=== PATIENT | female | born 1960 | race Caucasian/White ===

== ENCOUNTER 2021-04-08 14:42 | Emergency (ER) | payer BC, MEDICAID ==
[2021-04-08] MEDS ORDERED: Ondansetron 4 MG Tab.DIS PO ONE (15:31)
[2021-04-08] MEDS ORDERED: Sodium Chloride 0.9% 10 ML Syringe FLUSH PRN (15:39)
[2021-04-08] MEDS ORDERED: Ondansetron 4 MG/2 ML SDV IVPUSH ONE (15:39)
[2021-04-08] MEDS ORDERED: Sodium Chloride 0.9% 1,000 ML IV ONE (15:39)
--- NOTE | 2021-04-08 15:46 | EDM.PDOC ---
ED HPI GENERAL MEDICAL PROBLEM - General Chief Complaint: Gastrointestinal Problem Stated Complaint: VOMITING Time Seen by Provider: 04/08/21 15:28 Source of Information: Reports: Patient, RN Notes Reviewed History Limitations: Reports: No Limitations - History of Present Illness INITIAL COMMENTS - FREE TEXT/NARRATIVE: Patient is a 61-year-old female who presents to the ER for evaluation of her nausea and vomiting. Patient states since yesterday, she has had issues with nausea and vomiting so much that she cannot keep anything down for food or fluids, and she is not been able to take her meds. States that she has had a recent kidney transplant at the beginning of January, and is on antirejection medications. She became concerned again when she took her meds this morning, and could not keep them down called her regular provider in [place], and they told her she should come to the ER for evaluation for possible IV fluids. States she has had no fevers or chills, cough or shortness of breath. No diarrhea as well. She did get her Covid vaccine, and states she got her booster roughly 2 weeks ago. - Related Data Allergies Allergy/AdvReac Type Severity Reaction Status Date / Time codeine Allergy Other Verified 04/08/21 15:29 Home Meds: Home Meds Chromium/Herbal Complex No.238 [Green Tea Caplet] 1 tab PO DAILY 11/04/17 [History] HYDROmorphone [Dilaudid] 4 mg PO Q6HR PRN 11/04/17 [History] LORazepam 1 mg PO TID PRN 11/04/17 [History] Zolpidem Tartrate [Ambien] 10 mg PO BEDTIME PRN 11/04/17 [History] amLODIPine Besylate [Amlodipine Besylate] 10 mg PO DAILY 11/04/17 [History] calcitrioL [Rocaltrol] 0.25 mcg PO ASDIRECTED 11/04/17 [History] carvediloL [Coreg] 6.25 mg PO BID 11/04/17 [History] Ondansetron [Zofran ODT] 4 mg PO Q8H PRN #15 tab.dis 04/08/21 [Rx] Past Medical History Immunologic History: Reports: Solid Organ Transplant (Kidney transplant 01/2021) - History Comment History Comment: Has had COVID vaccine w/ booster end of Feb 2021 ED ROS GENERAL - Review of Systems Review Of Systems: Comprehensive ROS is negative, except as noted in HPI. ED EXAM, GI/ABD - Physical Exam Exam: See Below Exam Limited By: No Limitations General Appearance: Alert, WD/WN, No Apparent Distress Respiratory/Chest: No Respiratory Distress, Lungs Clear, Normal Breath Sounds, No Accessory Muscle Use, Chest Non-Tender Cardiovascular: Normal Peripheral Pulses, Regular Rate, Rhythm GI/Abdominal Exam: Normal Bowel Sounds, Soft, Non-Tender, No Distention, No Mass Extremities: Normal Inspection, Normal Capillary Refill Neurological: Alert, Oriented, Normal Cognition, No Motor/Sensory Deficits Psychiatric: Normal Affect, Normal Mood Skin Exam: Warm, Dry, Intact, Normal Color, No Rash Course - Vital Signs Last Recorded V/S: Last Vital Signs Temp 96.9 F 04/08/21 15:25 Pulse 75 04/08/21 15:25 Resp 18 04/08/21 15:25 BP 146/95 H 04/08/21 15:25 Pulse Ox 98 04/08/21 15:25 - Orders/Labs/Meds Orders: Active Orders 24 hr Category Date Time Status Peripheral IV Care [RC] . DIRECTED Care 04/08/21 15:39 Ordered Sodium Chloride 0.9% [Normal Saline] 1,000 ml Med 04/08/21 15:39 Ordered IV ONETIME Sodium Chloride 0.9% [Saline Flush] Med 04/08/21 15:39 Ordered 10 ml FLUSH ASDIRECTED PRN Peripheral IV Insertion Adult [OM.PC] Routine Oth 04/08/21 15:39 Ordered Medication Orders Sodium Chloride (Normal Saline) 1,000 mls @ 150 mls/hr IV ONETIME ONE Stop: 04/08/21 22:18 Last Admin: 04/08/21 15:51 Dose: 150 mls/hr Documented by: RADHA Sodium Chloride (Sodium Chloride 0.9% 10 Ml Syringe) 10 ml FLUSH ASDIRECTED PRN PRN Reason: Keep Vein Open Last Admin: 04/08/21 15:51 Dose: 10 ml Documented by: RADHA Labs: Laboratory Tests 04/08/21 04/08/21 04/08/21 Range/Units 15:30 15:30 15:41 WBC 8.08 (3.98-10.04) K/mm3 RBC 4.34 (3.98-5.22) M/mm3 Hgb 12.7 (11.2-15.7) gm/dl Hct 40.4 (34.1-44.9) % MCV 93.1 (79.4-94.8) fl MCH 29.3 (25.6-32.2) pg MCHC 31.4 L (32.2-35.5) g/dl RDW Std Deviation 53.3 H (36.4-46.3) fL Plt Count 334 (182-369) K/mm3 MPV 10.5 (9.4-12.3) fl Neut % (Auto) 86.8 H (34.0-71.1) % Lymph % (Auto) 4.8 L (19.3-51.7) % Jack % (Auto) 7.5 (4.7-12.5) % Eos % (Auto) 0.2 L (0.7-5.8) Baso % (Auto) 0.2 (0.1-1.2) % Neut # (Auto) 7.00 H (1.56-6.13) K/mm3 Lymph # (Auto) 0.39 L (1.18-3.74) K/mm3 Jack # (Auto) 0.61 H (0.24-0.36) K/mm3 Eos # (Auto) 0.02 L (0.04-0.36) K/mm3 Baso # (Auto) 0.02 (0.01-0.08) K/mm3 Sodium 141 (136-145) mEq/L Potassium 3.7 (3.5-5.1) mEq/L Chloride 104 (98-107) mEq/L Carbon Dioxide 26 (21-32) mEq/L Anion Gap 14.7 (5-15) BUN 24 H (7-18) mg/dL Creatinine 1.3 H (0.55-1.02) mg/dL Est Cr Clr Drug Dosing 39.05 mL/min Estimated GFR (MDRD) 41 (>60) mL/min BUN/Creatinine Ratio 18.5 H (14-18) Glucose 126 H (70-99) mg/dL Calcium 9.2 (8.5-10.1) mg/dL Total Bilirubin 0.5 (0.2-1.0) mg/dL AST 19 (15-37) U/L ALT 30 (14-59) U/L Alkaline Phosphatase 79 (46-116) U/L Total Protein 7.1 (6.4-8.2) g/dl Albumin 4.0 (3.4-5.0) g/dl Globulin 3.1 gm/dL Albumin/Globulin Ratio 1.3 (1-2) SARS-CoV-2 RNA (KYLE) Negative (NEGATIVE) Meds: Medications Generic Name Dose Route Start Last Admin Trade Name Freq PRN Reason Stop Dose Admin Sodium Chloride 1,000 mls @ 150 mls/hr 04/08/21 15:39 04/08/21 15:51 Normal Saline IV 04/08/21 22:18 150 mls/hr ONETIME ONE Administration Sodium Chloride 10 ml 04/08/21 15:39 04/08/21 15:51 Sodium Chloride 0.9% 10 Ml Syringe FLUSH 10 ml ASDIRECTED PRN Administration Keep Vein Open Discontinued Medications Generic Name Dose Route Start Last Admin Trade Name Freq PRN Reason Stop Dose Admin Ondansetron HCl 4 mg 04/08/21 15:31 04/08/21 15:45 Ondansetron 4 Mg Tab.Dis PO 04/08/21 15:32 Not Given ONETIME ONE Ondansetron HCl 4 mg 04/08/21 15:39 04/08/21 15:51 Ondansetron 4 Mg/2 Ml Sdv IVPUSH 04/08/21 15:40 4 mg ONETIME ONE Administration - Re-Assessments/Exams Free Text/Narrative Re-Assessment/Exam: 04/08/21 15:47 Patient presents to the ER for evaluation of her nausea and vomiting. We will go ahead and give her some IV fluids at 150 mils per hour. Get some basic labs, and check a Covid swab for today's purposes. This very well could be more of a viral gastroenteritis causing issues. If this is the case we can get her going home with some Zofran so she can leave keep her medications down, and have her follow-up with her transplant team tomorrow if symptoms seem to worsen. 04/08/21 17:06 Patient's COVID-19 screen was negative. Laboratory evaluation did demonstrate some slight dehydration, we will go ahead and treat her more for a viral gastroenteritis, and have her follow-up with her transplant team tomorrow. Departure - Departure Time of Disposition: 17:38 Disposition: Home, Self-Care 01 Condition: Good Clinical Impression: Viral gastroenteritis - Discharge Information *PRESCRIPTION DRUG MONITORING PROGRAM REVIEWED*: No *COPY OF PRESCRIPTION DRUG MONITORING REPORT IN PATIENT BRAYAN: No Prescriptions: Ondansetron [Zofran ODT] 4 mg PO Q8H PRN #15 tab.dis PRN Reason: Nausea Instructions: Viral Gastroenteritis, Adult, [id number] Referrals: Nu Ma [employer] DR[employer] [Primary Care Provider] - Forms: ED Department Discharge Additional Instructions: You have been evaluated in the ED for nausea/vomiting/diarrhea. It is likely that this is caused from a viral gastroenteritis. You have received IV fluid in the ED to help with the dehydration from the vomiting and diarrhea. Over the next 24-48 hours please try to limit diet to clear liquids and advance as tolerated to a bland diet to alleviate symptoms of nausea/vomiting/diarrhea. Please use the Zofran every 8 hours as needed for nausea. This medication was electronically sent to the [facility] located near [facility]. Please return to the ED if your symptoms should change or worsen. Sepsis Event Note (ED) - Focused Exam Vital Signs: Vital Signs Temp Pulse Resp BP Pulse Ox 04/08/21 15:25 96.9 F 75 18 146/95 H 98 - My Orders Last 24 Hours: My Active Orders 04/08/21 15:39 Peripheral IV Care [RC] . DIRECTED Sodium Chloride 0.9% [Normal Saline] 1,000 ml IV ONETIME Sodium Chloride 0.9% [Saline Flush] 10 ml FLUSH ASDIRECTED PRN Peripheral IV Insertion Adult [OM.PC] Routine - Assessment/Plan Last 24 Hours: My Active Orders 04/08/21 15:39 Peripheral IV Care [RC] . DIRECTED Sodium Chloride 0.9% [Normal Saline] 1,000 ml IV ONETIME Sodium Chloride 0.9% [Saline Flush] 10 ml FLUSH ASDIRECTED PRN Peripheral IV Insertion Adult [OM.PC] Routine
== END 2021-04-08 17:45 | disposition home or self-care (01) ==
LOC: JD.ED 14:42
DX: A08.4 Viral intestinal infection, unspecified (principal); Z88.5 Allergy status to narcotic agent; Z20.822 Contact with and (suspected) exposure to COVID-19
CPT/HCPCS: 36415; 80053; 85025; 87635; 96361; 96374; 99284; J2405; J7030; 99283; U0002

== ENCOUNTER 2021-04-24 17:43 | Observation (INO) | payer BC, MEDICAID ==
[2021-04-24] MEDS ORDERED: HYDROmorphone 0.5 MG/0.5 ML Syringe IVPUSH ONE ×2 (19:17→21:03)
[2021-04-24] MEDS ORDERED: Ondansetron 4 MG/2 ML SDV IVPUSH ONE (19:17)
--- NOTE | 2021-04-24 19:25 | EDM.PDOC ---
<García Lopez - Last Filed: 04/25/21 00:40> ED HPI GENERAL MEDICAL PROBLEM - General Chief Complaint: Abdominal Pain Stated Complaint: ABD PAIN/BLOOD IN URINE/POST KIDNEY TRANSPLANT Time Seen by Provider: 04/24/21 18:17 Source of Information: Reports: Patient, Family (Daughter) History Limitations: Reports: No Limitations - History of Present Illness INITIAL COMMENTS - FREE TEXT/NARRATIVE: Ms. Angela is a very pleasant 61-year-old woman with a past medical history significant for a kidney transplant this past January, who now presents to the ED stating that she has had watery diarrhea for the past 2 days, that became bloody diarrhea today. She states that she developed sudden-onset generalized abdominal pain yesterday, 04/23/2021, after lifting a pile of leaves. She describes the pain as sharp in character, and states that it comes and goes, typically lasting about 30 to 60 seconds, then recurring every minute. The pain does not radiate. She has not identified any modifiers. She has had associated nausea, but no vomiting. No recent fever. No recent dysuria, urinary urgency, or frequency, however, she states that it is possible that she has gross hematuria, not being able to distinguish whether or not she is seeing bloody diarrhea or gross hematuria. No prior similar symptoms. The patient states that she took some Tylenol, which did not help her symptoms. The patient last ate around 10:00 this morning. Here in the ED, the patient is found to be hemodynamically stable, afebrile, saturating 95% on room air. She appears to be comfortable, in no acute distress. Prior to 2 days ago, the patient denies having a recent fever, chills, sore throat, ear pain, nasal or sinus congestion, cough, dyspnea, chest pain, p alpitations, nausea, vomiting, constipation, diarrhea, abdominal pain, urinary symptoms, recent weight gain or weight loss, recent bloody bowel movements or black bowel movements, recent joint aches, headaches, or rashes. The patient's PCP is Nu Ma NP. Her Fur Joiner is Dr. Titi Callahan, at [facility]. She has received 2 COVID vaccinations plus a booster. Right Abdomen Pain Score (Numeric/FACES): 8 - Related Data Allergies Allergy/AdvReac Type Severity Reaction Status Date / Time codeine Allergy Severe Other Verified 04/24/21 18:19 Home Meds: Home Meds LORazepam 1 mg PO TID PRN 11/04/17 [History] Zolpidem Tartrate [Ambien] 10 mg PO BEDTIME PRN 11/04/17 [History] amLODIPine Besylate [Amlodipine Besylate] 10 mg PO DAILY 11/04/17 [History] calcitrioL [Rocaltrol] 0.25 mcg PO ASDIRECTED 11/04/17 [History] carvediloL [Coreg] 6.25 mg PO BID 11/04/17 [History] Ondansetron [Zofran ODT] 4 mg PO Q8H PRN #15 tab.dis 04/08/21 [Rx] Entecavir 0.5 mg PO Q2D 04/24/21 [History] Tacrolimus 2.5 mg PO BID 04/24/21 [History] Valganciclovir HCl 450 mg PO DAILY 04/24/21 [History] predniSONE [Prednisone] 5 mg PO DAILY 04/24/21 [History] Past Medical History HEENT History: Reports: Impaired Vision Cardiovascular History: Reports: High Cholesterol (untreated), Hypertension Gastrointestinal History: Reports: PUD Genitourinary History: Reports: Other (See Below) (ESRD, s/p kidney transplant Jan 2021) Psychiatric History: Reports: Anxiety, Depression Endocrine/Metabolic History: Reports: Hypothyroidism Immunologic History: Reports: Immunosuppression, Solid Organ Transplant - Past Surgical History HEENT Surgical History: Reports: Oral Surgery (dental extractions) GI Surgical History: Reports: Colonoscopy (x 1), EGD (x 1) Female Surgical History: Reports: Other (See Below) (Kidney transplant to RLQ Jan 2021) - History Comment History Comment: Has had COVID vaccine w/ booster end of Feb 2021 Social & Family History - Tobacco Use Tobacco Use Status *Q: Former Tobacco User Years of Tobacco use: 46 Packs/Tins Daily: 2 Month/Year Tobacco Last Used: Quit 01/31/21 Tobacco Use Comment: Started smoking 1974 - Caffeine Use Caffeine Use: Reports: Coffee - Alcohol Use Alcohol Use History: Yes Alcohol Use Frequency: Rarely - Recreational Drug Use Recreational Drug Use: Yes Drug Use in Last 12 Months: Yes Recreational Drug Type: Reports: Marijuana/Hashish (last smoked Jan 2021) - Living Situation & Occupation Living situation: Reports: Single, Alone Occupation: Unemployed ED ROS GENERAL - Review of Systems Review Of Systems: Comprehensive ROS is negative, except as noted in HPI. ED EXAM, GI/ABD - Physical Exam Exam: See Below Exam Limited By: No Limitations General Appearance: Alert, WD/WN, No Apparent Distress Eyes: Bilateral: Normal Appearance, EOMI Ears: Normal External Exam, Hearing Grossly Normal Nose: Normal Inspection Throat/Mouth: Normal Inspection, Normal Lips, Normal Voice, No Airway Compromise Head: Atraumatic, Normocephalic Neck: Normal Inspection, Full Range of Motion Respiratory/Chest: No Respiratory Distress, Lungs Clear, Normal Breath Sounds, No Accessory Muscle Use Cardiovascular: Normal Peripheral Pulses, Regular Rate, Rhythm, No Edema, No Gallop, No JVD, No Murmur, No Rub GI/Abdominal Exam: Soft, No Organomegaly, No Distention, No Abnormal Bruit, No Mass, Tender (generalized, non-focal), Abnormal Bowel Sounds (diminished, although not absent), Mass (RLQ = transplanted kidney), Other (Well-healed diagonal scar to the right lower quadrant at site of kidney transplant) Back Exam: Normal Inspection, Full Range of Motion. No: CVA Tenderness (L), CVA Tenderness (R) Extremities: Normal Inspection, Normal Range of Motion, No Pedal Edema, Normal Capillary Refill Neurological: Alert, Oriented, Normal Cognition, No Motor/Sensory Deficits Psychiatric: Normal Affect Skin Exam: Warm, Dry, Intact, Normal Color, No Rash Course - Re-Assessments/Exams Free Text/Narrative Re-Assessment/Exam: 04/24/21 19:18 On examination, the patient has diminished bowel sounds with generalized abdominal tenderness. I have ordered a work-up that includes several blood tests and a urinalysis by clean-catch. I would like to get a CT of her abdomen and pelvis with oral and IV contrast, however, since she is a kidney transplant patient, I would like to discuss this with her Fur Joiner first. We are endeavoring to contact Dr. Callahan. In the meantime, the patient will be given some IV Dilaudid, IV Zofran, and IV fluid. 04/24/21 19:[address] Powell at 19:21. He recommended that we avoid iodinated contrast if her creatinine is above 1.5. 04/24/21 21:00 The patient's CBC is remarkable for slight leukocytosis of 10.16, but with 0% bandemia, and thrombocytosis of 377,000, with the remainder of her CBC being unremarkable. Her CMP is remarkable for a Cr slightly elevated at 1.3 with a BUN normal at 18, and hyperglycemia of 134, with the remainder of her CMP being unremarkable. Her magnesium level is slightly depressed at 1.7. Her lipase level is within normal limits at 108. Her urinalysis is remarkable for slightly cloudy appearance, occult blood negative with 0-5 RBCs, 1+ leukocyte esterase with 5-10 WBCs, nitrate negative with few bacteria, and 10-20 squamous epithelial cells. Based on the above, I have ordered a CT of the abdomen and pelvis with oral and IV contrast. 04/24/21 21:03 Test results thus far and my plan to perform a CT scan discussed with the patient and her daughter. The patient is agreeable. She requested some additional pain medication. 04/24/21 23:53 CT of the abdomen and pelvis with oral and IV contrast is read by vRrohith as: 1. Transplant kidney right iliac fossa. 2. Given change in caliber of small bowel in the mid and lower right abdomen raises concern for partial moderate grade small bowel obstruction potentially related to adhesions. Small bowel is dilated to a diameter of 3.7 cm associated with aerated secretions which may be seen in obstruction and prolonged transit of small bowel content. 3. Mesenteric fluid in the right abdomen and in the pelvis. 4. Prominence of the common bile duct and the pancreatic duct. No intraductal calculus or pancreatic head mass is identified. Consider initial further assessment with MRCP/ERCP as clinically indicated. 04/25/21 00:13 The patient will need to be admitted. We do not have any beds available at this facility at this time. Shirley HODGE checked with the floor, and found that it is unlikely that a bed will become available tomorrow. 04/25/21 00:19 Test results discussed with the patient and her daughter. Notified that [facility] does not have a bed available. Our outpatient interviewing clerk is still checking with S[facility] Fioremarck. 04/25/21 00:33 Notified that [facility] does not have a bed available. Since the patient is not critically ill, I do not believe it would be prudent to fly her to a further facility. The plan will be to board the patient here in the ED until a bed becomes either here or in [place]. The above was relayed to the patient (her daughter has gone home). Departure - Departure Disposition: Refer to Observation Clinical Impression: Small bowel obstruction - Discharge Information *PRESCRIPTION DRUG MONITORING PROGRAM REVIEWED*: Not Applicable *COPY OF PRESCRIPTION DRUG MONITORING REPORT IN PATIENT BRAYAN: Not Applicable Referrals: Nu Ma NP [Primary Care Provider] - Titi Oakes MD [Ordering Only Provider] - Forms: ED Department Discharge Sepsis Event Note (ED) - Evaluation Sepsis Screening Result: No Definite Risk <Anthony Dyer - Last Filed: 04/25/21 10:07> Course - Vital Signs Last Recorded V/S: Last Vital Signs Temp 97.7 F 04/24/21 18:17 Pulse 80 04/24/21 18:17 Resp 18 04/24/21 18:17 BP 135/77 04/24/21 18:17 Pulse Ox 95 04/24/21 18:17 - Orders/Labs/Meds Orders: Active Orders 24 hr Category Date Time Status Sodium Chloride 0.9% [Normal Saline] 1,000 ml Med 04/24/21 19:30 Active IV ASDIRECTED Sodium Chloride 0.9% [Normal Saline] 1,000 ml Med 04/25/21 07:30 Active IV ASDIRECTED Medication Orders Sodium Chloride (Normal Saline) 1,000 mls @ 150 mls/hr IV ASDIRECTED RYAN Last Admin: 04/24/21 20:05 Dose: 150 mls/hr Documented by: JOVANNA Sodium Chloride (Normal Saline) 1,000 mls @ 100 mls/hr IV ASDIRECTED RYAN Last Admin: 04/25/21 03:00 Dose: 100 mls/hr Documented by: ANGY Labs: Laboratory Tests 04/24/21 04/24/21 04/24/21 Range/Units 19:05 20:09 20:09 WBC 10.16 H (3.98-10.04) K/mm3 RBC 4.26 (3.98-5.22) M/mm3 Hgb 12.3 (11.2-15.7) gm/dl Hct 39.1 (34.1-44.9) % MCV 91.8 (79.4-94.8) fl MCH 28.9 (25.6-32.2) pg MCHC 31.5 L (32.2-35.5) g/dl RDW Std Deviation 47.3 H (36.4-46.3) fL Plt Count 377 H (182-369) K/mm3 MPV 10.1 (9.4-12.3) fl Neutrophils % (Manual) 85 H (40-60) % Band Neutrophils % 0 (0-10) % Lymphocytes % (Manual) 8 L (20-40) % Atypical Lymphs % 0 % Monocytes % (Manual) 6 (2-10) % Eosinophils % (Manual) 1 (0.7-5.8) % Basophils % (Manual) 0 L (0.1-1.2) Platelet Estimate Adequate RBC Morph Comment Normal Sodium 137 (136-145) mEq/L Potassium 4.1 (3.5-5.1) mEq/L Chloride 101 (98-107) mEq/L Carbon Dioxide 23 (21-32) mEq/L Anion Gap 17.1 H (5-15) BUN 18 (7-18) mg/dL Creatinine 1.3 H (0.55-1.02) mg/dL Est Cr Clr Drug Dosing 38.25 mL/min Estimated GFR (MDRD) 41 (>60) mL/min BUN/Creatinine Ratio 13.8 L (14-18) Glucose 134 H (70-99) mg/dL Calcium 9.1 (8.5-10.1) mg/dL Magnesium 1.7 L (1.8-2.4) mg/dL Total Bilirubin 0.4 (0.2-1.0) mg/dL AST 14 L (15-37) U/L ALT 27 (14-59) U/L Alkaline Phosphatase 78 (46-116) U/L Total Protein 7.0 (6.4-8.2) g/dl Albumin 3.5 (3.4-5.0) g/dl Globulin 3.5 gm/dL Albumin/Globulin Ratio 1.0 (1-2) Lipase 108 (73-393) U/L Urine Color Yellow (Yellow) Urine Appearance Slt cloudy H (Clear) Urine pH 5.5 (5.0-8.0) Ur Specific Emmet > or = 1.030 (1.005-1.030) Urine Protein Negative (Negative) Urine Glucose (UA) Negative (Negative) Urine Ketones Negative (Negative) Urine Occult Blood Negative (Negative) Urine Nitrite Negative (Negative) Urine Bilirubin Negative (Negative) Urine Urobilinogen 0.2 (0.2-1.0) Ur Leukocyte Esterase 1+ H (Negative) Urine RBC 0-5 (0-5) /hpf Urine WBC 5-10 H (0-5) /hpf Ur Squamous Epith Cells 10-20 H (0-5) /hpf Amorphous Sediment Moderate H (NOT SEEN) /hpf Urine Bacteria Few (FEW) /hpf Urine Mucus Few (FEW) /hpf SARS-CoV-2 RNA (KYLE) (NEGATIVE) 04/25/21 Range/Units 00:20 WBC (3.98-10.04) K/mm3 RBC (3.98-5.22) M/mm3 Hgb (11.2-15.7) gm/dl Hct (34.1-44.9) % MCV (79.4-94.8) fl MCH (25.6-32.2) pg MCHC (32.2-35.5) g/dl RDW Std Deviation (36.4-46.3) fL Plt Count (182-369) K/mm3 MPV (9.4-12.3) fl Neutrophils % (Manual) (40-60) % Band Neutrophils % (0-10) % Lymphocytes % (Manual) (20-40) % Atypical Lymphs % % Monocytes % (Manual) (2-10) % Eosinophils % (Manual) (0.7-5.8) % Basophils % (Manual) (0.1-1.2) Platelet Estimate RBC Morph Comment Sodium (136-145) mEq/L Potassium (3.5-5.1) mEq/L Chloride (98-107) mEq/L Carbon Dioxide (21-32) mEq/L Anion Gap (5-15) BUN (7-18) mg/dL Creatinine (0.55-1.02) mg/dL Est Cr Clr Drug Dosing mL/min Estimated GFR (MDRD) (>60) mL/min BUN/Creatinine Ratio (14-18) Glucose (70-99) mg/dL Calcium (8.5-10.1) mg/dL Magnesium (1.8-2.4) mg/dL Total Bilirubin (0.2-1.0) mg/dL AST (15-37) U/L ALT (14-59) U/L Alkaline Phosphatase (46-116) U/L Total Protein (6.4-8.2) g/dl Albumin (3.4-5.0) g/dl Globulin gm/dL Albumin/Globulin Ratio (1-2) Lipase (73-393) U/L Urine Color (Yellow) Urine Appearance (Clear) Urine pH (5.0-8.0) Ur Specific Emmet (1.005-1.030) Urine Protein (Negative) Urine Glucose (UA) (Negative) Urine Ketones (Negative) Urine Occult Blood (Negative) Urine Nitrite (Negative) Urine Bilirubin (Negative) Urine Urobilinogen (0.2-1.0) Ur Leukocyte Esterase (Negative) Urine RBC (0-5) /hpf Urine WBC (0-5) /hpf Ur Squamous Epith Cells (0-5) /hpf Amorphous Sediment (NOT SEEN) /hpf Urine Bacteria (FEW) /hpf Urine Mucus (FEW) /hpf SARS-CoV-2 RNA (KYLE) Negative (NEGATIVE) Meds: Medications Generic Name Dose Route Start Last Admin Trade Name Freq PRN Reason Stop Dose Admin Sodium Chloride 1,000 mls @ 150 mls/hr 04/24/21 19:30 04/24/21 20:05 Normal Saline IV 150 mls/hr ASDIRECTED RYAN Administration Sodium Chloride 1,000 mls @ 100 mls/hr 04/25/21 07:30 04/25/21 03:00 Normal Saline IV 100 mls/hr ASDIRECTED RYAN Administration Discontinued Medications Generic Name Dose Route Start Last Admin Trade Name Freq PRN Reason Stop Dose Admin Hydromorphone HCl 0.5 mg 04/24/21 19:17 04/24/21 20:06 Hydromorphone 0.5 Mg/0.5 Ml Syringe IVPUSH 04/24/21 19:18 0.5 mg ONETIME ONE Administration Hydromorphone HCl 0.5 mg 04/24/21 21:03 04/24/21 21:09 Hydromorphone 0.5 Mg/0.5 Ml Syringe IVPUSH 04/24/21 21:04 0.5 mg ONETIME ONE Administration Hydromorphone HCl 0.5 mg 04/25/21 00:40 04/25/21 00:54 Hydromorphone 0.5 Mg/0.5 Ml Syringe IVPUSH 04/25/21 00:41 0.5 mg ONETIME ONE Administration Ondansetron HCl 4 mg 04/24/21 19:17 04/24/21 20:06 Ondansetron 4 Mg/2 Ml Sdv IVPUSH 04/24/21 19:18 4 mg ONETIME ONE Administration - Re-Assessments/Exams Free Text/Narrative Re-Assessment/Exam: 04/25/21 10:06 A bed opened up and I talked with Dr Haas and he agreed to the admission. Departure - Departure Time of Disposition: 10:10 Condition: Fair
[2021-04-24] MEDS ORDERED: Sodium Chloride 0.9% 1,000 ML IV SCH (19:30)
[2021-04-25] MEDS ORDERED: HYDROmorphone 0.5 MG/0.5 ML Syringe IVPUSH ONE (00:40)
[2021-04-25] MEDS ORDERED: Sodium Chloride 0.9% 1,000 ML IV SCH (07:30)
--- NOTE | 2021-04-25 07:37 | CT ---
CT abdomen and pelvis Technique: Multiple axial sections were obtained from above the dome of the diaphragm inferiorly through the pubic symphysis. Intravenous and oral contrast were utilized. Delayed images were also obtained through the abdomen and pelvis. Reconstructed coronal and sagittal images were obtained. Comparison: No prior CT abdomen or pelvis study are available. Findings: Visualized lung bases show nothing acute. Liver contains no focal abnormality. Gallbladder contains no calcified gallstones. Distal CBD measures normal in size. No focal abnormality is seen within the pancreas. Spleen size is normal. Calcification is noted within the spleen. Adrenal glands show no nodule. Both kidneys are atrophied. Transplant kidney is seen within the right pelvis which shows normal contrast enhancement. Abdominal aorta shows atherosclerotic calcification which continues into the iliac vessels. No aneurysm is seen. No retroperitoneal adenopathy or mesenteric abnormalities are seen. No pelvic mass or adenopathy is seen. Appendix is not visualized. Diverticuli are seen within the sigmoid colon without evidence of diverticulitis. Dilated small bowel loops are seen within the lower abdomen and pelvis with nondilated loops seen distally. Maximum transverse dimension is 3.7 cm. Findings are most likely due to a focal area of small bowel obstruction probably due to nonvisualized adhesions. Minimal free fluid is seen within the dependent pelvis. Delayed images show contrast excretion from the transplant kidney into the ureter and into the bladder. Delayed images show mild degenerative change scattered within the spine. No acute osseous abnormality is appreciated. Impression: 1. Dilated small bowel loops within the lower abomen with distal bowel loops appearing normal in size. Findings most likely represent focal small bowel obstruction. Etiology is most likely due to nonvisualized adhesions. 2. Small amount of fluid within the dependent pelvis. 3. Prior cholecystectomy. Biliary ducts are felt to be within normal limits for a postcholecystectomy patient. Diagnostic code #3 I agree with preliminary report from [facility], finalized on 04/25/21, 12:47 AM CDT, code 1
--- NOTE | 2021-04-25 10:11 | PCM.HP.2 ---
H&P History of Present Illness - General Date of Service: 04/25/21 Source of Information: Patient, Family (Daughter ), Old Records, Provider, RN, RN Notes Reviewed History Limitations: Reports: No Limitations - History of Present Illness Initial Comments - Free Text/Narative: This is a 61-year-old female who presents to ED on 04/24/2021 with abdominal pain and bloody diarrhea. She is chronically immunocompromised status post kidney transplant this past January. She states she developed sudden onset generalized abdominal pain on 04/23/2021 after lifting a pile of leaves which she reports is sharp. She states it comes and goes and lasts 30 to 60 seconds recurring about every minute. She reports she has had watery diarrhea for the past 2 days but she then noticed blood in her stool and decided to come to the emergency room. She reports nausea but no vomiting. Denies any recent fever or urinary symptoms. She took some Tylenol which did not help. She has received her 2 Covid vaccinations and a booster. In the ED she is noted to be hemodynamically stable afebrile and satting 95% on room air. Heart rate was 80 respirations were 18. Blood pressure 135/77. She was noted to have diminished bowel signs and generalized abdominal tenderness. After discussion with Dr. Powell, insole rasper, it is felt safe to proceed with a CT of the abdomen and pelvis with oral and IV contrast. This is interpreted by Dr. Burger, radiologist as "1. Dilated small bowel loops within the lower abdomen with distal bowel loops appearing normal in size. Findings most likely represent focal small bowel obstruction. Etiology is most likely due to nonvisualized adhesions. 2. Small amount of fluid within the dependent pelvis. 3. Prior cholecystectomy. Biliary ducts are felt to be within normal limits for a postcholecystectomy patient. Labs are obtained showing a mild leukocytosis of 10.16. Hemoglobin is 12.3. Platelet 377,000. Neutrophils are elevated at 85%. There is no bandemia. Sodium is 137. Potassium 4.1. Chlo ride 101. Carbon dioxide 23. Anion gap is 17.1. BUN is 18. Creatinine 1.3. GFR 41. Glucose is 134. Calcium 9.1. Magnesium is 1.7. Bilirubin 0.4. AST is 14, ALT 27, alkaline phosphatase 78. Protein is 7.0. Albumin 3.5. Lipase is 108. UA is obtained and is negative however cloudy concentrated urine is noted with 1+ leukocyte esterase, 5-10 WBCs, 10-20 squamous epithelial cells, and moderate amorphous sediment. Covid 2 RNA screen is negative. Patient is given Dilaudid for pain and started on normal saline. Unfortunately our facility in both facilities in [place] are on diversion and it is not felt patient is ill enough to be transferred further. She is held in our emergency d epartment until a bed opens up today on medical surgical floor. She is subsequently admitted to the medical floor observation status for management of her partial small bowel obstruction. She is a full code. Her primary care provider is Nu Ma NP. Her insole rasper is Dr. Titi Gibbs in [place]. She carries a history of HLD, HTN, PUD, status post renal transplant in January 2021, anxiety, depression, hypothyroidism, immunosuppression. She is a former smoker. Right Abdomen Pain Score (Numeric/FACES): 8 - Related Data Allergies/Adverse Reactions: Allergies Allergy/AdvReac Type Severity Reaction Status Date / Time codeine Allergy Unknown Other Verified 04/25/21 12:31 Home Medications: Home Meds LORazepam 1 mg PO TID PRN 11/04/17 [History] Zolpidem Tartrate [Ambien] 10 mg PO BEDTIME PRN 11/04/17 [History] amLODIPine Besylate [Amlodipine Besylate] 10 mg PO DAILY 11/04/17 [History] carvediloL [Coreg] 12.5 mg PO BID 11/04/17 [History] Ondansetron [Zofran ODT] 4 mg PO Q8H PRN #15 tab.dis 04/08/21 [Rx] Entecavir 0.5 mg PO Q2D 04/24/21 [History] Tacrolimus 2.5 mg PO BID 04/24/21 [History] Valganciclovir HCl 450 mg PO DAILY 04/24/21 [History] predniSONE [Prednisone] 5 mg PO DAILY 04/24/21 [History] Levothyroxine [Synthroid] 50 mcg PO ACBREAKFAST 04/25/21 [History] Magnesium Oxide [Magnesium] 400 mg PO BID 04/25/21 [History] Pantoprazole Sodium [Protonix] 40 mg PO ACBREAKFAST 04/25/21 [History] Rosuvastatin [Crestor] 10 mg PO BEDTIME 04/25/21 [History] Sertraline [Zoloft] 50 mg PO DAILY 04/25/21 [History] Sulfamethoxazole/Trimethoprim [Bactrim 400-80 MG] 1 tab PO DAILY 04/25/21 [History] mycophenolate mofetiL [Cellcept] 1,000 mg PO BID 04/25/21 [History] Past Medical History HEENT History: Reports: Impaired Vision Cardiovascular History: Reports: High Cholesterol (untreated), Hypertension Gastrointestinal History: Reports: PUD Genitourinary History: Reports: Other (See Below) (ESRD, s/p kidney transplant Jan 2021) Psychiatric History: Reports: Anxiety, Depression Endocrine/Metabolic History: Reports: Hypothyroidism Immunologic History: Reports: Immunosuppression, Solid Organ Transplant - Past Surgical History HEENT Surgical History: Reports: Oral Surgery (dental extractions) GI Surgical History: Reports: Colonoscopy (x 1), EGD (x 1) Female Surgical History: Reports: Other (See Below) (Kidney transplant to RLQ Jan 2021) - History Comment History Comment: Has had COVID vaccine w/ booster end of Feb 2021 Social & Family History - Tobacco Use Tobacco Use Status *Q: Former Tobacco User Years of Tobacco use: 46 Packs/Tins Daily: 2 Used Tobacco, but Quit: Yes Month/Year Tobacco Last Used: Quit 01/31/21 Tobacco Use Comment: Started smoking 1974 - Caffeine Use Caffeine Use: Reports: Coffee - Recreational Drug Use Recreational Drug Use: Yes Drug Use in Last 12 Months: Yes Recreational Drug Type: Reports: Marijuana/Hashish (last smoked Jan 2021) - Living Situation & Occupation Living situation: Reports: Single, Alone Occupation: Unemployed H&P Review of Systems - Review of Systems: Review Of Systems: See Below General: Reports: No Symptoms. Denies: Fever, Chills, Malaise, Weakness, Fatigue HEENT: Reports: No Symptoms. Denies: Headaches, Sore Throat Pulmonary: Reports: No Symptoms. Denies: Shortness of Breath, Wheezing, Pleuritic Chest Pain, Cough, Sputum Cardiovascular: Reports: No Symptoms. Denies: Chest Pain, Palpitations, Dyspnea on Exertion, Edema Gastrointestinal: Reports: Abdominal Pain (Generalized - Upper quadrants most severe ), Diarrhea, Flatus, Hematochezia, Nausea. Denies: Constipation, Hematemesis, Melena, Vomiting Genitourinary: Reports: No Symptoms. Denies: Pain Musculoskeletal: Reports: No Symptoms Skin: Reports: No Symptoms. Denies: Cyanosis Psychiatric: Reports: No Symptoms. Denies: Confusion Neurological: Reports: No Symptoms. Denies: Dizziness, Headache, Numbness, Pre- Existing Deficit, Seizure, Syncope, Tingling, Difficulty Walking, Gait Disturbance Hematologic/Lymphatic: Reports: No Symptoms Immunologic: Reports: No Symptoms Exam - Exam Exam: See Below (tamiko campbell) - Vital Signs Vital Signs: Last Vital Signs Temp 97.7 F 04/24/21 18:17 Pulse 80 04/24/21 18:17 Resp 18 04/24/21 18:17 BP 135/77 04/24/21 18:17 Pulse Ox 95 04/24/21 18:17 Weight: 152 lb 4.8 oz - Exam Quality Assessment: DVT Prophylaxis. No: Supplemental Oxygen, Urinary Catheter General: Alert, Oriented, Cooperative. No: Mild Distress HEENT: Conjunctiva Clear, EACs Clear, Mucosa Moist & [place], Posterior Pharynx Clear Neck: Supple, Trachea Midline Lungs: Clear to Auscultation, Normal Respiratory Effort Cardiovascular: Regular Rate, Regular Rhythm GI/Abdominal Exam: Distended, Tender (Generalized with upper quadrants most severe), Abnormal Bowel Sounds (Hyperactive ). No: Guarding (Female) Exam: Deferred Rectal (Female) Exam: Deferred Back Exam: Normal Inspection, Full Range of Motion Extremities: Normal Inspection, Normal Range of Motion, Non-Tender, No Pedal Edema, Normal Capillary Refill Peripheral Pulses: 2+: Radial (L), Radial (R), Dorsalis Pedis (L), Dorsalis Pedis (R) Skin: Warm, Dry, Intact Neurological: Cranial Nerves Intact (Grossly ) Neuro Extensive - Mental Status: Alert, Oriented x3, Normal Mood/Affect - Patient Data Lab Results Last 24 hrs: Laboratory Results - last 24 hr 04/24/21 04/24/21 04/24/21 Range/Units 19:05 20:09 20:09 WBC 10.16 H (3.98-10.04) K/mm3 RBC 4.26 (3.98-5.22) M/mm3 Hgb 12.3 (11.2-15.7) gm/dl Hct 39.1 (34.1-44.9) % MCV 91.8 (79.4-94.8) fl MCH 28.9 (25.6-32.2) pg MCHC 31.5 L (32.2-35.5) g/dl RDW Std Deviation 47.3 H (36.4-46.3) fL Plt Count 377 H (182-369) K/mm3 MPV 10.1 (9.4-12.3) fl Neutrophils % (Manual) 85 H (40-60) % Band Neutrophils % 0 (0-10) % Lymphocytes % (Manual) 8 L (20-40) % Atypical Lymphs % 0 % Monocytes % (Manual) 6 (2-10) % Eosinophils % (Manual) 1 (0.7-5.8) % Basophils % (Manual) 0 L (0.1-1.2) Platelet Estimate Adequate RBC Morph Comment Normal Sodium 137 (136-145) mEq/L Potassium 4.1 (3.5-5.1) mEq/L Chloride 101 (98-107) mEq/L Carbon Dioxide 23 (21-32) mEq/L Anion Gap 17.1 H (5-15) BUN 18 (7-18) mg/dL Creatinine 1.3 H (0.55-1.02) mg/dL Est Cr Clr Drug Dosing 38.25 mL/min Estimated GFR (MDRD) 41 (>60) mL/min BUN/Creatinine Ratio 13.8 L (14-18) Glucose 134 H (70-99) mg/dL Calcium 9.1 (8.5-10.1) mg/dL Magnesium 1.7 L (1.8-2.4) mg/dL Total Bilirubin 0.4 (0.2-1.0) mg/dL AST 14 L (15-37) U/L ALT 27 (14-59) U/L Alkaline Phosphatase 78 (46-116) U/L Total Protein 7.0 (6.4-8.2) g/dl Albumin 3.5 (3.4-5.0) g/dl Globulin 3.5 gm/dL Albumin/Globulin Ratio 1.0 (1-2) Lipase 108 (73-393) U/L Urine Color Yellow (Yellow) Urine Appearance Slt cloudy H (Clear) Urine pH 5.5 (5.0-8.0) Ur Specific [place] > or = 1.030 (1.005-1.030) Urine Protein Negative (Negative) Urine Glucose (UA) Negative (Negative) Urine Ketones Negative (Negative) Urine Occult Blood Negative (Negative) Urine Nitrite Negative (Negative) Urine Bilirubin Negative (Negative) Urine Urobilinogen 0.2 (0.2-1.0) Ur Leukocyte Esterase 1+ H (Negative) Urine RBC 0-5 (0-5) /hpf Urine WBC 5-10 H (0-5) /hpf Ur Squamous Epith Cells 10-20 H (0-5) /hpf Amorphous Sediment Moderate H (NOT SEEN) /hpf Urine Bacteria Few (FEW) /hpf Urine Mucus Few (FEW) /hpf SARS-CoV-2 RNA (KYLE) (NEGATIVE) 04/25/21 Range/Units 00:20 WBC (3.98-10.04) K/mm3 RBC (3.98-5.22) M/mm3 Hgb (11.2-15.7) gm/dl Hct (34.1-44.9) % MCV (79.4-94.8) fl MCH (25.6-32.2) pg MCHC (32.2-35.5) g/dl RDW Std Deviation (36.4-46.3) fL Plt Count (182-369) K/mm3 MPV (9.4-12.3) fl Neutrophils % (Manual) (40-60) % Band Neutrophils % (0-10) % Lymphocytes % (Manual) (20-40) % Atypical Lymphs % % Monocytes % (Manual) (2-10) % Eosinophils % (Manual) (0.7-5.8) % Basophils % (Manual) (0.1-1.2) Platelet Estimate RBC Morph Comment Sodium (136-145) mEq/L Potassium (3.5-5.1) mEq/L Chloride (98-107) mEq/L Carbon Dioxide (21-32) mEq/L Anion Gap (5-15) BUN (7-18) mg/dL Creatinine (0.55-1.02) mg/dL Est Cr Clr Drug Dosing mL/min Estimated GFR (MDRD) (>60) mL/min BUN/Creatinine Ratio (14-18) Glucose (70-99) mg/dL Calcium (8.5-10.1) mg/dL Magnesium (1.8-2.4) mg/dL Total Bilirubin (0.2-1.0) mg/dL AST (15-37) U/L ALT (14-59) U/L Alkaline Phosphatase (46-116) U/L Total Protein (6.4-8.2) g/dl Albumin (3.4-5.0) g/dl Globulin gm/dL Albumin/Globulin Ratio (1-2) Lipase (73-393) U/L Urine Color (Yellow) Urine Appearance (Clear) Urine pH (5.0-8.0) Ur Specific [place] (1.005-1.030) Urine Protein (Negative) Urine Glucose (UA) (Negative) Urine Ketones (Negative) Urine Occult Blood (Negative) Urine Nitrite (Negative) Urine Bilirubin (Negative) Urine Urobilinogen (0.2-1.0) Ur Leukocyte Esterase (Negative) Urine RBC (0-5) /hpf Urine WBC (0-5) /hpf Ur Squamous Epith Cells (0-5) /hpf Amorphous Sediment (NOT SEEN) /hpf Urine Bacteria (FEW) /hpf Urine Mucus (FEW) /hpf SARS-CoV-2 RNA (KYLE) Negative (NEGATIVE) Result Diagrams: 04/24/21 20:09 04/24/21 20:09 Sepsis Event Note - Evaluation Sepsis Screening Result: No Definite Risk - Problem List (1) HLD (hyperlipidemia) SNOMED Code(s): 63305219 ICD Code: E78.5 - HYPERLIPIDEMIA, UNSPECIFIED Status: Chronic Priority: Low Current Visit: Yes Qualifiers: Hyperlipidemia type: unspecified Qualified Code(s): E78.5 - Hyperlipidemia, unspecified (2) HTN (hypertension) SNOMED Code(s): 65970245 ICD Code: I10 - ESSENTIAL (PRIMARY) HYPERTENSION Status: Chronic Priority: Medium Current Visit: No Qualifiers: Hypertension type: unspecified Qualified Code(s): I10 - Essential (primary) hypertension (3) PUD (peptic ulcer disease) SNOMED Code(s): 64563094 ICD Code: K27.9 - PEPTIC ULC, SITE UNSP, UNSP AC OR CHR, W/O HEMOR OR PERF Status: Chronic Priority: Low Current Visit: No (4) S/P kidney transplant SNOMED Code(s): 948062204, 73585100, 711570833 ICD Code: Z94.0 - KIDNEY TRANSPLANT STATUS Status: Chronic Priority: Medium Current Visit: Yes (5) Immunocompromised SNOMED Code(s): 003653447 ICD Code: D84.9 - IMMUNODEFICIENCY, UNSPECIFIED Status: Chronic Priority: Medium Current Visit: Yes (6) Anxiety SNOMED Code(s): 19644872 ICD Code: F41.9 - ANXIETY DISORDER, UNSPECIFIED Status: Chronic Priority: Low Current Visit: No (7) Depression SNOMED Code(s): 66990688 ICD Code: F32.9 - MAJOR DEPRESSIVE DISORDER, SINGLE EPISODE, UNSPECIFIED Status: Chronic Priority: Low Current Visit: No Qualifiers: Depression Type: other depression Qualified Code(s): F32.89 - Other specified depressive episodes (8) Hypothyroidism SNOMED Code(s): 25087255 ICD Code: E03.9 - HYPOTHYROIDISM, UNSPECIFIED Status: Chronic Priority: Low Current Visit: No Qualifiers: Hypothyroidism type: unspecified Qualified Code(s): E03.9 - Hypothyroidism, unspecified (9) Former smoker SNOMED Code(s): 7038789 ICD Code: Z87.891 - PERSONAL HISTORY OF NICOTINE DEPENDENCE Status: Chronic Priority: Low Current Visit: No (10) Small bowel obstruction SNOMED Code(s): 907555098 ICD Code: K56.609 - UNSP INTESTNL OBST, UNSP TO PARTIAL VERSUS COMPLETE OBST Status: Acute Priority: High Current Visit: Yes (11) Hematochezia SNOMED Code(s): 410167515 ICD Code: K92.1 - MELENA Status: Acute Priority: Medium Current Visit: Yes (12) Abdominal pain SNOMED Code(s): 86703806 ICD Code: R10.9 - UNSPECIFIED ABDOMINAL PAIN Status: Acute Priority: High Current Visit: Yes Qualifiers: Abdominal location: generalized Qualified Code(s): R10.84 - Generalized abdominal pain (13) Nausea SNOMED Code(s): 251902930 ICD Code: R11.0 - NAUSEA Status: Acute Priority: Medium Current Visit: Yes Problem List Initiated/Reviewed/Updated: Yes Orders Last 24hrs: Active Orders 24 hr Category Date Time Status Sodium Chloride 0.9% [Normal Saline] 1,000 ml Med 04/24/21 19:30 Active IV ASDIRECTED Sodium Chloride 0.9% [Normal Saline] 1,000 ml Med 04/25/21 07:30 Active IV ASDIRECTED Medication Orders Sodium Chloride (Normal Saline) 1,000 mls @ 150 mls/hr IV ASDIRECTED RYAN Last Admin: 04/24/21 20:05 Dose: 150 mls/hr Documented by: JOVANNA Sodium Chloride (Normal Saline) 1,000 mls @ 100 mls/hr IV ASDIRECTED RYAN Last Admin: 04/25/21 03:00 Dose: 100 mls/hr Documented by: ANGY Assessment/Plan Comment:: Day of admission - 04/25/2021 (Presented to ED on 04/24/2021) * 61-year-old female who presents to ED on 04/24/2021 with abdominal pain and bloody diarrhea * History of HLD, HTN, PUD, status post renal transplant in January 2021, anxiety, depression, hypothyroidism, immunosuppression. She is a former smoker. * Chronically immunocompromised status post kidney transplant this past January * Developed sudden onset generalized abdominal pain on 04/23/2021 after lifting a pile of leaves which she reports is sharp * States pain comes and goes and lasts 30 to 60 seconds recurring about every minute * Reports she has had watery diarrhea for the past 2 days but she then noticed blood in her stool and decided to come to the emergency room * Reports nausea but no vomiting * Denies any recent fever or urinary symptoms * Took some Tylenol which did not help * She has received her 2 Covid vaccinations and a booster. * Diminished bowel signs and generalized abdominal tenderness noted in ED. * After discussion with Dr. Powell, insole rasper, it is felt safe to proceed with a CT of the abdomen and pelvis with oral and IV contrast. * Abdomen/pelvis CT interpreted by Dr. Burger, radiologist as * 1. Dilated small bowel loops within the lower abdomen with distal bowel loops appearing normal in size. Findings most likely represent focal small bowel obstruction. Etiology is most likely due to nonvisualized adhesions. * 2. Small amount of fluid within the dependent pelvis. * 3. Prior cholecystectomy. Biliary ducts are felt to be within normal limi ts for a postcholecystectomy patient. * Labs are obtained showing: * WBC of 10.16. * Hemoglobin is 12.3. * Platelet 377,000. * Neutrophils are elevated at 85%. There is no bandemia. * Sodium is 137. * Potassium 4.1. * Chloride 101. * Carbon dioxide 23. * Anion gap is 17.1. * BUN is 18. Creatinine 1.3. GFR 41. * Glucose is 134. * Calcium 9.1. * Magnesium is 1.7. * Bilirubin 0.4. * AST is 14, ALT 27, alkaline phosphatase 78. * Protein is 7.0. * Albumin 3.5. * Lipase is 108. * UA is obtained and is negative however cloudy concentrated urine is noted with 1+ leukocyte esterase, 5-10 WBCs, 10-20 squamous epithelial cells, and moderate amorphous sediment. * Covid 2 RNA screen is negative. * Patient is given Dilaudid for pain and started on normal saline. * Unfortunately our facility in both facilities in [place] are on diversion and it is not felt patient is ill enough to be transferred further. * She is held in our emergency department until a bed opens up today on medical surgical floor. * She is subsequently admitted to the medical floor observation status for management of her partial small bowel obstruction. Plan: Small bowel obstruction Hematochezia Abdominal pain PUD (peptic ulcer disease) Nausea * Antiemetics as ordered * Clear liquid diet * PRN pain medications as ordered * Ambulate QID * Continue home PPI * Monitor daily labs * Will hold off NG tube - will place if pain worsens or patient begins to vomit * Will hold off general surgery consultation for now but bring onboard if patient worsens * Monitor I&O's * Discontinue IV fluids for now * Check CRP * Check Fecal lactoferrin S/P kidney transplant Immunocompromised * Continue home immunosuppression meds * Monitor daily labs HLD (hyperlipidemia) * No acute concerns * Hold home statin HTN (hypertension) * No acute concerns * Monitor vital signs * Continue home meds Anxiety Depression * No acute concerns * Continue home scheduled and PRN meds Hypothyroidism * No acute concerns * Continue home levothyroxine Former smoker * No acute concerns * Stopped before her renal transplant Code status: Full code PCP: Nu Ma NP Manager Contract: Dr. Titi Callahan at [facility] in [place] DVT prophylaxis: TAMIKO campbell. Will hold off pharmacological prophylaxis for now due to hematochezia Disposition: Patient admitted to the medical floor observation status for management of small bowel obstruction and hematochezia. Likely LOS 1-2 days pending improvement. - Mortality Measure Prognosis:: Good
[2021-04-25] MEDS ORDERED: HYDROmorphone 0.5 MG/0.5 ML Syringe IVPUSH PRN (12:21)
[2021-04-25] MEDS ORDERED: Acetaminophen 325 MG Tab PO PRN (12:21)
[2021-04-25] MEDS ORDERED: Ondansetron 4 MG/2 ML SDV IV PRN (12:21)
[2021-04-25] MEDS: oxyCODONE 5 MG Tab PO PRN ×2 (13:01→20:48)
[2021-04-25] MEDS ORDERED: LORazepam 1 MG Tab PO PRN (13:05)
[2021-04-25] MEDS ORDERED: Zolpidem 10 MG Tab PO PRN (13:05)
[2021-04-26] MEDS: oxyCODONE 5 MG Tab PO PRN ×3 (05:20→20:17)
--- NOTE | 2021-04-26 07:12 | PCM.PN ---
- General Info Date of Service: 04/26/21 Functional Status: Reports: Pain Controlled, Tolerating Diet, Ambulating, Urinating. Denies: New Symptoms - Review of Systems General: Reports: No Symptoms. Denies: Fever, Weakness, Fatigue, Malaise, Chills HEENT: Reports: No Symptoms. Denies: Headaches, Sore Throat Pulmonary: Reports: No Symptoms. Denies: Shortness of Breath, Cough, Sputum, Wheezing Cardiovascular: Reports: No Symptoms. Denies: Chest Pain, Palpitations, Dyspnea on Exertion Gastrointestinal: Reports: Abdominal Pain (Generalized. Suprapubic and upper quadrants. ), Flatus. Denies: Constipation, Decreased Appetite, Diarrhea, Difficulty Swallowing, Hematochezia, Melena, Nausea, Vomiting Genitourinary: Reports: No Symptoms. Denies: Pain Musculoskeletal: Reports: No Symptoms Skin: Reports: No Symptoms. Denies: Cyanosis Neurological: Reports: No Symptoms. Denies: Confusion, Dizziness, Headache, Numbness, Pre-Existing Deficit, Seizure, Syncope, Tingling, Difficulty Walking, Weakness, Gait Disturbance Psychiatric: Reports: No Symptoms - Patient Data Vitals - Most Recent: Last Vital Signs Temp 98.1 F 04/26/21 05:22 Pulse 61 04/26/21 05:22 Resp 18 04/26/21 05:22 BP 117/70 04/26/21 05:22 Pulse Ox 93 L 04/26/21 05:22 Weight - Most Recent: 150 lb I&O - Last 24 Hours: Intake & Output 04/25/21 04/26/21 04/26/21 22:59 06:59 14:59 Intake Total 720 Output Total 1200 Balance 720 -1200 Lab Results Last 24 Hours: Laboratory Results - last 24 hr 04/24/21 04/26/21 04/26/21 Range/Units 20:09 05:13 05:13 WBC 5.95 (3.98-10.04) K/mm3 RBC 4.15 (3.98-5.22) M/mm3 Hgb 12.0 (11.2-15.7) gm/dl Hct 38.7 (34.1-44.9) % MCV 93.3 (79.4-94.8) fl MCH 28.9 (25.6-32.2) pg MCHC 31.0 L (32.2-35.5) g/dl RDW Std Deviation 46.3 (36.4-46.3) fL Plt Count 421 H (182-369) K/mm3 MPV 10.0 (9.4-12.3) fl Neut % (Auto) 82.4 H (34.0-71.1) % Lymph % (Auto) 6.6 L (19.3-51.7) % [place] % (Auto) 9.4 (4.7-12.5) % Eos % (Auto) 0.8 (0.7-5.8) Baso % (Auto) 0.5 (0.1-1.2) % Neut # (Auto) 4.90 (1.56-6.13) K/mm3 Lymph # (Auto) 0.39 L (1.18-3.74) K/mm3 [place] # (Auto) 0.56 H (0.24-0.36) K/mm3 Eos # (Auto) 0.05 (0.04-0.36) K/mm3 Baso # (Auto) 0.03 (0.01-0.08) K/mm3 Sodium 141 (136-145) mEq/L Potassium 4.1 (3.5-5.1) mEq/L Chloride 104 (98-107) mEq/L Carbon Dioxide 29 (21-32) mEq/L Anion Gap 12.1 (5-15) BUN 11 (7-18) mg/dL Creatinine 1.3 H (0.55-1.02) mg/dL Est Cr Clr Drug Dosing 38.25 mL/min Estimated GFR (MDRD) 41 (>60) mL/min BUN/Creatinine Ratio 8.5 L (14-18) Glucose 97 (70-99) mg/dL Calcium 9.0 (8.5-10.1) mg/dL Magnesium 1.7 L (1.8-2.4) mg/dL Total Bilirubin 0.2 (0.2-1.0) mg/dL AST 13 L (15-37) U/L ALT 27 (14-59) U/L Alkaline Phosphatase 76 (46-116) U/L C-Reactive Protein 6.1 H* 3.7 H* (<1.0) mg/dL Total Protein 6.8 (6.4-8.2) g/dl Albumin 3.3 L (3.4-5.0) g/dl Globulin 3.5 gm/dL Albumin/Globulin Ratio 0.9 L (1-2) Med Orders - Current: Current Medications Acetaminophen (Acetaminophen 325 Mg Tab) 650 mg PO Q4H PRN PRN Reason: Pain (Mild 1-3)/fever Last Admin: 04/25/21 15:01 Dose: 650 mg Documented by: Amlodipine Besylate (Amlodipine 10 Mg Tab) 10 mg PO DAILY [facility] Carvedilol (Carvedilol 6.25 Mg Tab) 12.5 mg PO BID [facility] Hydromorphone HCl (Hydromorphone 0.5 Mg/0.5 Ml Syringe) 0.5 mg IVPUSH Q2H PRN PRN Reason: Pain (severe 7-10) Levothyroxine Sodium (Levothyroxine 50 Mcg Tab) 50 mcg PO ACBREAKFAST [facility] Lorazepam (Lorazepam 1 Mg Tab) 1 mg PO TID PRN PRN Reason: Anxiety Mycophenolate Mofetil (Mycophenolate Mofetil 250 Mg Cap) 1,000 mg PO BID [facility] Non-Formulary Medication (Magnesium Oxide [Magnesium]) 400 mg PO BID [facility] Non-Formulary Medication (Pantoprazole Sodium) 40 mg PO ACBREAKFAST [facility] Non-Formulary Medication (Sulfamethoxazole/Trimethoprim) 1 tab PO DAILY [facility] Non-Formulary Medication (Tacrolimus) 2.5 mg PO BID [facility] Non-Formulary Medication (Valganciclovir Hcl [Valganciclovir Hcl]) 450 mg PO DAILY [facility] Ondansetron HCl (Ondansetron 4 Mg/2 Ml Sdv) 4 mg IV Q6H PRN PRN Reason: Nausea/Vomiting Oxycodone HCl (Oxycodone 5 Mg Tab) 10 mg PO Q6H PRN PRN Reason: Pain (moderate 4-6) Last Admin: 04/26/21 05:20 Dose: 10 mg Documented by: Entecavir 0.5 Mg (Tablet) 0 each PO Q2D [facility] Prednisone (Prednisone 5 Mg Tab) 5 mg PO DAILY [facility] Sertraline HCl (Sertraline 25 Mg Tab) 50 mg PO DAILY [facility] Zolpidem Tartrate (Zolpidem 10 Mg Tab) 10 mg PO BEDTIME PRN PRN Reason: Insomnia Discontinued Medications Hydromorphone HCl (Hydromorphone 0.5 Mg/0.5 Ml Syringe) 0.5 mg IVPUSH ONETIME ONE Stop: 04/24/21 19:18 Last Admin: 04/24/21 20:06 Dose: 0.5 mg Documented by: Hydromorphone HCl (Hydromorphone 0.5 Mg/0.5 Ml Syringe) 0.5 mg IVPUSH ONETIME ONE Stop: 04/24/21 21:04 Last Admin: 04/24/21 21:09 Dose: 0.5 mg Documented by: Hydromorphone HCl (Hydromorphone 0.5 Mg/0.5 Ml Syringe) 0.5 mg IVPUSH ONETIME ONE Stop: 04/25/21 00:41 Last Admin: 04/25/21 00:54 Dose: 0.5 mg Documented by: Sodium Chloride (Normal Saline) 1,000 mls @ 150 mls/hr IV ASDIRECTED [facility] Last Admin: 04/24/21 20:05 Dose: 150 mls/hr Documented by: Sodium Chloride (Normal Saline) 1,000 mls @ 100 mls/hr IV ASDIRECTED [facility] Last Infusion: 04/25/21 09:00 Dose: 0 mls/hr Documented by: Ondansetron HCl (Ondansetron 4 Mg/2 Ml Sdv) 4 mg IVPUSH ONETIME ONE Stop: 04/24/21 19:18 Last Admin: 04/24/21 20:06 Dose: 4 mg Documented by: - Exam Quality Assessment: DVT Prophylaxis (TAMIKO Ch ). No: Supplemental Oxygen, Urine Catheter General: Alert, Oriented, Cooperative, No Acute Distress HEENT: Pupils Equal, Pupils Reactive, Mucous Membr. Moist/[place] Neck: Supple, Trachea Midline Lungs: Clear to Auscultation, Normal Respiratory Effort Cardiovascular: Regular Rate, Regular Rhythm GI/Abdominal Exam: Normal Bowel Sounds, Soft, No Distention, Tender (Generalized - most prominent suprapubic and upper quadrants but greatly improved overall ), Other (Large incision on right lower quadrant of abdomen secondary to renal transplant which is healing very well. No signs of inflammation or infection.) (Female) Exam: Deferred Back Exam: Normal Inspection, Full Range of Motion Extremities: Normal Inspection, Normal Range of Motion, Non-Tender, No Pedal Edema, Normal Capillary Refill Peripheral Pulses: 2+: Radial (L), Radial (R), Dorsalis Pedis (L), Dorsalis P keke (R) Skin: Warm, Dry, Intact Wound/Incisions: Healing Well Neurological: No New Focal Deficit Psy/Mental Status: Alert, Normal Affect, Normal Mood - Patient Data Lab Results Last 24 hrs: Laboratory Results - last 24 hr 04/24/21 04/26/21 04/26/21 Range/Units 20:09 05:13 05:13 WBC 5.95 (3.98-10.04) K/mm3 RBC 4.15 (3.98-5.22) M/mm3 Hgb 12.0 (11.2-15.7) gm/dl Hct 38.7 (34.1-44.9) % MCV 93.3 (79.4-94.8) fl MCH 28.9 (25.6-32.2) pg MCHC 31.0 L (32.2-35.5) g/dl RDW Std Deviation 46.3 (36.4-46.3) fL Plt Count 421 H (182-369) K/mm3 MPV 10.0 (9.4-12.3) fl Neut % (Auto) 82.4 H (34.0-71.1) % Lymph % (Auto) 6.6 L (19.3-51.7) % [place] % (Auto) 9.4 (4.7-12.5) % Eos % (Auto) 0.8 (0.7-5.8) Baso % (Auto) 0.5 (0.1-1.2) % Neut # (Auto) 4.90 (1.56-6.13) K/mm3 Lymph # (Auto) 0.39 L (1.18-3.74) K/mm3 [place] # (Auto) 0.56 H (0.24-0.36) K/mm3 Eos # (Auto) 0.05 (0.04-0.36) K/mm3 Baso # (Auto) 0.03 (0.01-0.08) K/mm3 Sodium 141 (136-145) mEq/L Potassium 4.1 (3.5-5.1) mEq/L Chloride 104 (98-107) mEq/L Carbon Dioxide 29 (21-32) mEq/L Anion Gap 12.1 (5-15) BUN 11 (7-18) mg/dL Creatinine 1.3 H (0.55-1.02) mg/dL Est Cr Clr Drug Dosing 38.25 mL/min Estimated GFR (MDRD) 41 (>60) mL/min BUN/Creatinine Ratio 8.5 L (14-18) Glucose 97 (70-99) mg/dL Calcium 9.0 (8.5-10.1) mg/dL Magnesium 1.7 L (1.8-2.4) mg/dL Total Bilirubin 0.2 (0.2-1.0) mg/dL AST 13 L (15-37) U/L ALT 27 (14-59) U/L Alkaline Phosphatase 76 (46-116) U/L C-Reactive Protein 6.1 H* 3.7 H* (<1.0) mg/dL Total Protein 6.8 (6.4-8.2) g/dl Albumin 3.3 L (3.4-5.0) g/dl Globulin 3.5 gm/dL Albumin/Globulin Ratio 0.9 L (1-2) Result Diagrams: 04/26/21 05:13 04/26/21 05:13 Sepsis Event Note - Evaluation Sepsis Screening Result: No Definite Risk - Focused Exam Vital Signs: Vital Signs Temp Pulse Resp BP Pulse Ox 04/26/21 05:22 98.1 F 61 18 117/70 93 L 04/25/21 20:43 118/67 04/25/21 20:42 97.7 F 69 18 99/68 95 - Problem List & Annotations (1) HLD (hyperlipidemia) SNOMED Code(s): 53521906 Code(s): E78.5 - HYPERLIPIDEMIA, UNSPECIFIED Status: Chronic Priority: Low Current Visit: Yes Qualifiers: Hyperlipidemia type: unspecified Qualified Code(s): E78.5 - Hyperlipidemia, unspecified (2) HTN (hypertension) SNOMED Code(s): 57835519 Code(s): I10 - ESSENTIAL (PRIMARY) HYPERTENSION Status: Chronic Priority: Medium Current Visit: No Qualifiers: Hypertension type: unspecified Qualified Code(s): I10 - Essential (primary) hypertension (3) PUD (peptic ulcer disease) SNOMED Code(s): 87495490 Code(s): K27.9 - PEPTIC ULC, SITE UNSP, UNSP AC OR CHR, W/O HEMOR OR PERF Status: Chronic Priority: Low Current Visit: No (4) S/P kidney transplant SNOMED Code(s): 581355729, 99163005, 851099610 Code(s): Z94.0 - KIDNEY TRANSPLANT STATUS Status: Chronic Priority: Medium Current Visit: Yes (5) Immunocompromised SNOMED Code(s): 183218315 Code(s): D84.9 - IMMUNODEFICIENCY, UNSPECIFIED Status: Chronic Priority: Medium Current Visit: Yes (6) Anxiety SNOMED Code(s): 79764868 Code(s): F41.9 - ANXIETY DISORDER, UNSPECIFIED Status: Chronic Priority: Low Current Visit: No (7) Depression SNOMED Code(s): 82525903 Code(s): F32.9 - MAJOR DEPRESSIVE DISORDER, SINGLE EPISODE, UNSPECIFIED Status: Chronic Priority: Low Current Visit: No Qualifiers: Depression Type: other depression Qualified Code(s): F32.89 - Other specified depressive episodes (8) Hypothyroidism SNOMED Code(s): 46571578 Code(s): E03.9 - HYPOTHYROIDISM, UNSPECIFIED Status: Chronic Priority: Low Current Visit: No Qualifiers: Hypothyroidism type: unspecified Qualified Code(s): E03.9 - Hypothyroidism, unspecified (9) Former smoker SNOMED Code(s): 9575364 Code(s): Z87.891 - PERSONAL HISTORY OF NICOTINE DEPENDENCE Status: Chronic Priority: Low Current Visit: No (10) Small bowel obstruction SNOMED Code(s): 189956513 Code(s): K56.609 - UNSP INTESTNL OBST, UNSP TO PARTIAL VERSUS COMPLETE OBST Status: Acute Priority: High Current Visit: Yes (11) Hematochezia SNOMED Code(s): 780671081 Code(s): K92.1 - MELENA Status: Acute Priority: Medium Current Visit: Yes (12) Abdominal pain SNOMED Code(s): 08888280 Code(s): R10.9 - UNSPECIFIED ABDOMINAL PAIN Status: Acute Priority: High Current Visit: Yes Qualifiers: Abdominal location: generalized Qualified Code(s): R10.84 - Generalized abdominal pain (13) Nausea SNOMED Code(s): 931939672 Code(s): R11.0 - NAUSEA Status: Acute Priority: Medium Current Visit: Yes (14) Hypomagnesemia SNOMED Code(s): 545084901 Code(s): E83.42 - HYPOMAGNESEMIA Status: Acute Priority: Medium Current Visit: Yes - Problem List Review Problem List Initiated/Reviewed/Updated: Yes - My Orders Last 24 Hours: My Active Orders 04/25/21 Lunch Clear Liquid Diet [DIET] 04/25/21 12:21 Ambulate [RC] QID Oxygen Therapy [RC] ASDIRECTED Up ad Vashti [RC] ASDIRECTED Vital Signs [RC] 03,, Acetaminophen [TylenoL] 650 mg PO Q4H PRN HYDROmorphone [Dilaudid] 0.5 mg IVPUSH Q2H PRN Ondansetron [Zofran] 4 mg IV Q6H PRN 04/25/21 12:40 oxyCODONE 10 mg PO Q6H PRN 04/25/21 13:05 LORazepam [Ativan] 1 mg PO TID PRN Zolpidem [Ambien] 10 mg PO BEDTIME PRN 04/25/21 13:45 Antiembolic Devices [RC] BID TAMIKO Hose [Antiembolic Hose] [OM.PC] Routine 04/25/21 13:46 FECAL LACTOFERRIN [MREF] Routine 04/25/21 21:00 Magnesium Oxide [Magnesium] 400 mg PO BID Tacrolimus 2.5 mg PO BID carvediloL [Coreg] 12.5 mg PO BID mycophenolate mofetiL [Cellcept] 1,000 mg PO BID 04/26/21 06:00 Levothyroxine [Synthroid] 50 mcg PO ACBREAKFAST Pantoprazole Sodium 40 mg PO ACBREAKFAST 04/26/21 09:00 Sertraline [Zoloft] 50 mg PO DAILY Sulfamethoxazole/Trimethoprim 1 tab PO DAILY Valganciclovir HCl [Valganciclovir HCl] 450 mg PO DAILY amLODIPine [Norvasc] 10 mg PO DAILY predniSONE 5 mg PO DAILY 04/27/21 05:11 C-REACTIVE PROTEIN [CHEM] AM CBC WITH AUTO DIFF [HEME] AM COMPREHENSIVE METABOLIC PN,CMP [CHEM] AM MAGNESIUM [CHEM] AM 04/27/21 09:00 Patient's Own Medication [Ptom] 0 each PO Q2D 04/28/21 05:11 C-REACTIVE PROTEIN [CHEM] AM CBC WITH AUTO DIFF [HEME] AM COMPREHENSIVE METABOLIC PN,CMP [CHEM] AM MAGNESIUM [CHEM] AM 04/29/21 05:11 C-REACTIVE PROTEIN [CHEM] AM CBC WITH AUTO DIFF [HEME] AM COMPREHENSIVE METABOLIC PN,CMP [CHEM] AM MAGNESIUM [CHEM] AM - Assessment Assessment:: Day of admission - 04/25/2021 (Presented to ED on 04/24/2021) * 61-year-old female who presents to ED on 04/24/2021 with abdominal pain and bloody diarrhea * History of HLD, HTN, PUD, status post renal transplant in January 2021, anxiety, depression, hypothyroidism, immunosuppression. She is a former smoker. * Chronically immunocompromised status post kidney transplant this past January * Developed sudden onset generalized abdominal pain on 04/23/2021 after lifting a pile of leaves which she reports is sharp * States pain comes and goes and lasts 30 to 60 seconds recurring about every minute * Reports she has had watery diarrhea for the past 2 days but she then noticed blood in her stool and decided to come to the emergency room * Reports nausea but no vomiting * Denies any recent fever or urinary symptoms * Took some Tylenol which did not help * She has received her 2 Covid vaccinations and a booster. * Diminished bowel signs and generalized abdominal tenderness noted in ED. * After discussion with Dr. Powell, cargo and container inspector, it is felt safe to proceed with a CT of the abdomen and pelvis with oral and IV contrast. * Abdomen/pelvis CT interpreted by Dr. Burger, radiologist as * 1. Dilated small bowel loops within the lower abdomen with distal bowel loops appearing normal in size. Findings most likely represent focal small bowel obstruction. Etiology is most likely due to nonvisualized adhesions. * 2. Small amount of fluid within the dependent pelvis. * 3. Prior cholecystectomy. Biliary ducts are felt to be within normal limits for a postcholecystectomy patient. * Labs are obtained showing: * WBC of 10.16. * Hemoglobin is 12.3. * Platelet 377,000. * Neutrophils are elevated at 85%. There is no bandemia. * Sodium is 137. * Potassium 4.1. * Chloride 101. * Carbon dioxide 23. * Anion gap is 17.1. * BUN is 18. Creatinine 1.3. GFR 41. * Glucose is 134. * Calcium 9.1. * Magnesium is 1.7. * Bilirubin 0.4. * AST is 14, ALT 27, alkaline phosphatase 78. * Protein is 7.0. * Albumin 3.5. * Lipase is 108. * UA is obtained and is negative however cloudy concentrated urine is noted with 1+ leukocyte esterase, 5-10 WBCs, 10-20 squamous epithelial cells, and moderate amorphous sediment. * Covid 2 RNA screen is negative. * Patient is given Dilaudid for pain and started on normal saline. * Unfortunately our facility in both facilities in [place] are on diversion and it is not felt patient is ill enough to be transferred further. * She is held in our emergency department until a bed opens up today on medical surgical floor. * She is subsequently admitted to the medical floor observation status for management of her partial small bowel obstruction. 04/26/2021 This is a 61-year-old female admitted to the floor for partial small bowel obstruction. Overall she has been doing quite well. She was having loose bowel movements with some blood in them yesterday however this has stopped. Patient is on a clear liquid diet and states she is urinating frequently. Her abdominal pain has improved. She is having flatus. Bowel sounds are active. She had no fevers. Vital signs have been stable. Labs today show WBC of 5.95. Hemoglobin 12.0. Platelet 421,000. Neutrophils are elevated 82.4%. Sodium is 141. Potassium 4.1. Chloride 104. Carbon dioxide 29. Anion gap is 12.1. BUN is 11. Creatinine 1.3. GFR is 41. Glucose is 97. Magnesium 1.7 and this will be supplemented with 2 g. She is on home magnesium supplementation this will be continued as well. Total bilirubin 0.2. AST is 13, ALT 27, alkaline phosphatase 76. CRP is down to 3.7. Albumin is down to 3.3. Plan today will be to advance diet starting with breakfast and further as tolerated. If patient can tolerate regular diet plan will be to discharge tomorrow. - Plan Plan:: Small bowel obstruction Hematochezia, resolved Abdominal pain, improved PUD (peptic ulcer disease) Nausea, resolved * Antiemetics as ordered * Clear liquid diet --> advance to full liquids and then as tolerated * PRN pain medications as ordered * Ambulate QID * Continue home PPI * Monitor daily labs * Will hold off NG tube - will place if pain worsens or patient begins to vomit * Will hold off general surgery consultation for now but bring onboard if patient worsens * Monitor I&O's * Discontinue IV fluids for now * Check CRP (improving) * Check Fecal lactoferrin S/P kidney transplant Immunocompromised * Continue home immunosuppression meds * Monitor daily labs HLD (hyperlipidemia) * No acute concerns * Hold home statin HTN (hypertension) * No acute concerns * Monitor vital signs * Continue home meds Anxiety Depression * No acute concerns * Continue home scheduled and PRN meds Hypothyroidism * No acute concerns * Continue home levothyroxine Former smoker * No acute concerns * Stopped before her renal transplant Hypomagnesemia * Acute on chronic * Continue home BID magnesium * Supplement 2gm today IV Code status: Full code PCP: Nu Ma NP Wood Cutter: Dr. Titi Callahan at [place] [facility] in [place] DVT prophylaxis: TAMIKO ch. Will hold off pharmacological prophylaxis for now due to hematochezia Disposition: Patient admitted to the medical floor observation status for management of small bowel obstruction and hematochezia. Likely discharge tomorrow pending ability to tolerate diet advancement.
[2021-04-26] MEDS ORDERED: Magnesium Sulfate/Water 2 GM in Premix Bag 1 BAG IV ONE (07:57)
[2021-04-26] MEDS: AMLODIPINE 10 MG PO SCH (08:30)
[2021-04-26] MEDS: TRIMETHOPRIM PO SCH (08:30)
[2021-04-26] MEDS: VALGANCICLOVIR HCL 450 MG PO SCH (08:30)
[2021-04-26] MEDS: predniSONE 5 MG Tab **PTOM PO SCH (08:30)
[2021-04-26] MEDS: Carvedilol 12.5 MG Tab PO SCH ×2 (08:30→20:19)
[2021-04-26] MEDS: LEVOTHYROXINE 50 MCG PO SCH (08:30)
[2021-04-26] MEDS: Sertraline 50 MG Tab **PTOM PO SCH (08:30)
[2021-04-26] MEDS: SULFAMETHOXAZOLE PO SCH (08:30)
[2021-04-26] MEDS: PANTOPRAZOLE SODIUM 40 MG PO SCH (08:30)
[2021-04-26] MEDS: MAGNESIUM OXIDE 400 MG PO SCH ×4 (08:56→22:19)
[2021-04-26] MEDS ORDERED: MYCOPHENOLATE MOFETIL 500 MG PO SCH (10:00)
[2021-04-26] MEDS ORDERED: TACROLIMUS 0.5 MG PO SCH (10:00)
[2021-04-26] MEDS: MYCOPHENOLATE MOFETIL 500 MG PO SCH ×2 (12:15→22:20)
[2021-04-26] MEDS: TACROLIMUS 0.5 MG PO SCH (20:14)
[2021-04-26] MEDS ORDERED: MAGNESIUM OXIDE 400 MG PO SCH (21:00)
[2021-04-27] MEDS: oxyCODONE 5 MG Tab PO PRN (06:10)
[2021-04-27] MEDS: LEVOTHYROXINE 50 MCG PO SCH (07:30)
[2021-04-27] MEDS: PANTOPRAZOLE SODIUM 40 MG PO SCH (07:30)
[2021-04-27] MEDS ORDERED: LEVOTHYROXINE 50 MCG PO SCH (08:00)
[2021-04-27] MEDS ORDERED: PANTOPRAZOLE SODIUM 40 MG PO SCH (08:00)
[2021-04-27] MEDS: TACROLIMUS 0.5 MG PO SCH (08:25)
[2021-04-27] MEDS: Carvedilol 12.5 MG Tab PO SCH (08:26)
[2021-04-27] MEDS: AMLODIPINE 10 MG PO SCH (08:27)
[2021-04-27] MEDS: predniSONE 5 MG Tab **PTOM PO SCH (08:27)
[2021-04-27] MEDS: Sertraline 50 MG Tab **PTOM PO SCH (08:29)
[2021-04-27] MEDS: SULFAMETHOXAZOLE PO SCH (08:30)
[2021-04-27] MEDS: TRIMETHOPRIM PO SCH (08:30)
[2021-04-27] MEDS: VALGANCICLOVIR HCL 450 MG PO SCH (08:31)
[2021-04-27] MEDS ORDERED: ENTECAVIR 0.5 MG PO SCH (09:00)
--- NOTE | 2021-04-27 09:02 | PCM.DCSUM1 ---
Discharge Summary - Hospital Course HPI Initial Comments: This is a 61-year-old female who presents to ED on 04/24/2021 with abdominal pain and bloody diarrhea. She is chronically immunocompromised status post kidney transplant this past January. She states she developed sudden onset generalized abdominal pain on 04/23/2021 after lifting a pile of leaves which she reports is sharp. She states it comes and goes and lasts 30 to 60 seconds recurring about every minute. She reports she has had watery diarrhea for the past 2 days but she then noticed blood in her stool and decided to come to the emergency room. She reports nausea but no vomiting. Denies any recent fever or urinary symptoms. She took some Tylenol which did not help. She has received her 2 Covid vaccinations and a booster. In the ED she is noted to be hemodynamically stable afebrile and satting 95% on room air. Heart rate was 80 respirations were 18. Blood pressure 135/77. She was noted to have diminished bowel signs and generalized abdominal tenderness. After discussion with Dr. Powell, director video, it is felt safe to proceed with a CT of the abdomen and pelvis with oral and IV contrast. This is interpreted by Dr. Burger, radiologist as "1. Dilated small bowel loops within the lower abdomen with distal bowel loops appearing normal in size. Findings most likely represent focal small bowel obstruction. Etiology is most likely due to nonvisualized adhesions. 2. Small amount of fluid within the dependent pelvis. 3. Prior cholecystectomy. Biliary ducts are felt to be within normal limits for a postcholecystectomy patient. Labs are obtained showing a mild leukocytosis of 10.16. Hemoglobin is 12.3. Platelet 377,000. Neutrophils are elevated at 85%. There is no bandemia. Sodium is 137. Potassium 4.1. Chloride 101. Carbon dioxide 23. Anion gap is 17.1. BUN is 18. Creatinine 1.3. GFR 41. Glucose is 134. Calcium 9.1. Magnesium is 1.7. Bilirubin 0.4. AST is 14, ALT 27, alkaline phosphatase 78. Protein is 7.0. Albumin 3.5. Lipase is 108. UA is obtained and is negative however cloudy concentrated urine is noted with 1+ leukocyte esterase, 5-10 WBCs, 10-20 squamous epithelial cells, and moderate amorphous sediment. Covid 2 RNA screen is negative. Patient is given Dilaudid for pain and started on normal saline. Unfortunately our facility in both facilities in [place] are on diversion and it is not felt patient is ill enough to be transferred further. She is held in our emergency department until a bed opens up today on medical surgical floor. She is subsequently admitted to the medical floor observation status for management of her partial small bowel obstruction. She is a full code. Her primary care provider is Nu Ma NP. Her director video is Dr. Titi Gibbs in [place]. She carries a history of HLD, HTN, PUD, status post renal transplant in January 2021, anxiety, depression, hypothyroidism, immunosuppression. She is a former smoker. Diagnosis: Stroke: No - Discharge Data Discharge Date: 04/27/21 (Admit date: 04/25/2021) Discharge Disposition: Home, Self-Care 01 Condition: Good - Referral to Home Health Primary Care Physician: Nu Ma NP - Discharge Diagnosis/Problem(s) (1) HLD (hyperlipidemia) SNOMED Code(s): 24779193 ICD Code: E78.5 - HYPERLIPIDEMIA, UNSPECIFIED Status: Chronic Priority: Low Current Visit: Yes Qualifiers: Hyperlipidemia type: unspecified Qualified Code(s): E78.5 - Hyperlipidemia, unspecified (2) HTN (hypertension) SNOMED Code(s): 30756511 ICD Code: I10 - ESSENTIAL (PRIMARY) HYPERTENSION Status: Chronic Priority: Medium Current Visit: No Qualifiers: Hypertension type: unspecified Qualified Code(s): I10 - Essential (primary) hypertension (3) PUD (peptic ulcer disease) SNOMED Code(s): 37985389 ICD Code: K27.9 - PEPTIC ULC, SITE UNSP, UNSP AC OR CHR, W/O HEMOR OR PERF Status: Chronic Priority: Low Current Visit: No (4) S/P kidney transplant SNOMED Code(s): 684535164, 02241282, 012980926 ICD Code: Z94.0 - KIDNEY TRANSPLANT STATUS Status: Chronic Priority: Medium Current Visit: Yes (5) Immunocompromised SNOMED Code(s): 855286553 ICD Code: D84.9 - IMMUNODEFICIENCY, UNSPECIFIED Status: Chronic Priority: Medium Current Visit: Yes (6) Anxiety SNOMED Code(s): 90711900 ICD Code: F41.9 - ANXIETY DISORDER, UNSPECIFIED Status: Chronic Priority: Low Current Visit: No (7) Depression SNOMED Code(s): 82010409 ICD Code: F32.9 - MAJOR DEPRESSIVE DISORDER, SINGLE EPISODE, UNSPECIFIED Status: Chronic Priority: Low Current Visit: No Qualifiers: Depression Type: other depression Qualified Code(s): F32.89 - Other specified depressive episodes (8) Hypothyroidism SNOMED Code(s): 83907948 ICD Code: E03.9 - HYPOTHYROIDISM, UNSPECIFIED Status: Chronic Priority: Low Current Visit: No Qualifiers: Hypothyroidism type: unspecified Qualified Code(s): E03.9 - Hypothyroidism, unspecified (9) Former smoker SNOMED Code(s): 6286032 ICD Code: Z87.891 - PERSONAL HISTORY OF NICOTINE DEPENDENCE Status: Chronic Priority: Low Current Visit: No (10) Small bowel obstruction SNOMED Code(s): 334604919 ICD Code: K56.609 - UNSP INTESTNL OBST, UNSP TO PARTIAL VERSUS COMPLETE OBST Status: Resolved Priority: High Current Visit: Yes (11) Hematochezia SNOMED Code(s): 527039831 ICD Code: K92.1 - MELENA Status: Resolved Priority: Medium Current Visit: Yes (12) Abdominal pain SNOMED Code(s): 01999869 ICD Code: R10.9 - UNSPECIFIED ABDOMINAL PAIN Status: Acute Priority: High Current Visit: Yes Qualifiers: Abdominal location: generalized Qualified Code(s): R10.84 - Generalized abdominal pain (13) Nausea SNOMED Code(s): 939228805 ICD Code: R11.0 - NAUSEA Status: Resolved Priority: Medium Current Visit: Yes (14) Hypomagnesemia SNOMED Code(s): 180596857 ICD Code: E83.42 - HYPOMAGNESEMIA Status: Resolved Priority: Medium Current Visit: Yes - Patient Summary/Data Labs Pending at D/C: Fecal lactoferrin Recommended Follow-up Testing/Procedures: Recommend follow-up with primary care provider within 5 to 7 days of discharge, sooner if needed. * Recommend repeat CBC, CMP, and magnesium in follow-up. * Patient discharged on as needed oxycodone. She was instructed to wean off this as soon as possible. * Fecal lactoferrin is pending. Recommend follow-up with GI/general surgery regarding colonoscopy in the near future. Hospital Course: This is a 61-year-old female presented to ED on 04/24/2021 with abdominal pain and reported bloody diarrhea. History of HLD, HTN, PUD, status post renal transplant in January 2021, anxiety, depression, hypothyroidism, immunosuppression. She is a former smoker. She reports nausea but no vomiting. CT scan of the abdomen and pelvis was obtained with oral and IV contrast after discussion with Dr. Powell, nephrology in [place] and showed: 1. Dilated small bowel loops within the lower abdomen with distal bowel loops appearing normal in size. Findings most likely represent focal small bowel obstruction. Etiology is most likely due to nonvisualized adhesions. 2. Small amount of fluid within the dependent pelvis. 3. Prior cholecystectomy. Biliary ducts are felt to be within normal limits for a postcholecystectomy patient. WBC was mildly elevated at 10.16. UA was negative. Lipase was within normal limits. Covid 2 RNA screen was negative. She was given Dilaudid for pain and started on IV fluids. She was made n.p.o. status. Patient was held in the ED due to no bed availability in our facility or either hospital in [place]. She was reporting flatus and her bowel sounds were active. She was admitted to the floor observation status for management of her small bowel obstruction. Patient's diet was slowly advanced without difficulty. Her pain was controlled with p.o. oxycodone once on the floor. Magnesium was supplemented. CRP did improve. Fecal lactoferrin was obtained and is pending. Patient's hematochezia did resolve. She did have a bowel movement on the floor. Her pain greatly improved. Labs remained stable. Creatinine today was increased from 1.3 to 1.6 and patient was instructed to continue to drink plenty of fluids. She did request we call Ashley, her nephrologists nurse at [phone] and attempt was made to contact her. Recommend follow-up with primary care provider within 5 to 7 days of discharge, sooner if needed. Recommend repeat CBC, CMP, and magnesium in discharge. Patient was discharged on every 6 hours as needed oxycodone 10 mg. She was instructed not to drive or operate machinery. She was advised that this may increase constipation and was told to take [id number] laxatives/stool softeners as needed. She was advised to contact primary care provider or return to the emergency room should symptoms return or worsen. Overall she was doing quite well. She will discharge home today. Fecal lactoferrin is still pending. Recommend patient receive outpatient colonoscopy in the near future. - Patient Instructions Diet: Usual Diet as Tolerated Activity: As Tolerated Driving: Do Not Drive (While on narcotic pain medications ) Showering/Bathing: May Shower Notify Provider of: Fever, Increased Pain, Nausea and/or Vomiting Other/Special Instructions: Follow-up with primary care provider within 5 to 7 days of discharge, sooner if needed. Recommend outpatient colonoscopy at some point in the near future. You may discuss this with your primary care provider. You were given oxycodone which is a narcotic pain medication. Use this sparingly as prescribed. Be aware it may lead to constipation and impair your ability to drive or operate machinery. Do not drive while on this medication. The goal would be to wean off this as soon as possible. You may take Tylenol for more mild pain. Take [id number] laxative/stool softeners as needed for constipation. Resume home medications as directed. Should symptoms return or worsen contact primary care provider or return to the emergency room. - Discharge Plan *PRESCRIPTION DRUG MONITORING PROGRAM REVIEWED*: Not Applicable *COPY OF PRESCRIPTION DRUG MONITORING REPORT IN PATIENT BRAYAN: Not Applicable Prescriptions/Med Rec: oxyCODONE 10 mg PO Q6H PRN #9 tablet PRN Reason: Pain (Moderate 4-6) Home Medications: Home Meds LORazepam 1 mg PO TID PRN 11/04/17 [History] Zolpidem Tartrate [Ambien] 10 mg PO BEDTIME PRN 11/04/17 [History] amLODIPine Besylate [Amlodipine Besylate] 10 mg PO DAILY 11/04/17 [History] carvediloL [Coreg] 12.5 mg PO BID 11/04/17 [History] Ondansetron [Zofran ODT] 4 mg PO Q8H PRN #15 tab.dis 04/08/21 [Rx] Entecavir 0.5 mg PO Q2D 04/24/21 [History] Tacrolimus 2.5 mg PO BID 04/24/21 [History] Valganciclovir HCl 450 mg PO DAILY 04/24/21 [History] predniSONE [Prednisone] 5 mg PO DAILY 04/24/21 [History] Levothyroxine [Synthroid] 50 mcg PO ACBREAKFAST 04/25/21 [History] Magnesium Oxide [Magnesium] 400 mg PO BID 04/25/21 [History] Pantoprazole Sodium [Protonix] 40 mg PO ACBREAKFAST 04/25/21 [History] Rosuvastatin [Crestor] 5 mg PO BEDTIME 04/25/21 [History] Sertraline [Zoloft] 50 mg PO DAILY 04/25/21 [History] Sulfamethoxazole/Trimethoprim [Bactrim 400-80 MG] 1 tab PO DAILY 04/25/21 [History] mycophenolate mofetiL [Cellcept] 1,000 mg PO BID 04/25/21 [History] oxyCODONE 10 mg PO Q6H PRN #9 tablet 04/27/21 [Rx] Oxygen Therapy Mode: Room Air Patient Handouts: Bowel Obstruction, Cela-wt-Bpue Forms: ED Department Discharge Referrals: Nu Ma NP [Primary Care Provider] - 05/07/21 8:45 am (Please come 15 minutes prior to the appointment to register.) Titi Oakes MD [Ordering Only Provider] - (Follow up as needed.) - Discharge Summary/Plan Comment DC Time >30 min.: Yes Total # of Minutes for Discharge Time: 45 - General Info Date of Service: 04/27/21 Admission Dx/Problem (Free Text: SBO Functional Status: Reports: Pain Controlled, Tolerating Diet, Ambulating, Urinating. Denies: New Symptoms - Review of Systems General: Reports: No Symptoms. Denies: Fever, Weakness, Fatigue, Malaise, Chills HEENT: Reports: No Symptoms. Denies: Headaches, Sore Throat Pulmonary: Reports: No Symptoms. Denies: Shortness of Breath, Pleuritic Chest Pain, Cough, Sputum, Hemoptysis, Wheezing Cardiovascular: Reports: No Symptoms. Denies: Chest Pain, Dyspnea on Exertion, Edema Gastrointestinal: Reports: Abdominal Pain (greatly improved ), Flatus, Other (Had BM last night.). Denies: Constipation, Diarrhea, Nausea, Vomiting Genitourinary: Reports: No Symptoms. Denies: Dysuria Musculoskeletal: Reports: No Symptoms Skin: Reports: No Symptoms. Denies: Cyanosis Neurological: Reports: No Symptoms. Denies: Confusion, Dizziness, Headache, Numbness, Paresthesia, Pre-Existing Deficit, Seizure, Syncope, Tingling, Difficulty Walking, Weakness, Gait Disturbance Psychiatric: Reports: No Symptoms - Patient Data Vitals - Most Recent: Last Vital Signs Temp 98.2 F 04/27/21 06:07 Pulse 70 04/27/21 08:26 Resp 14 04/27/21 06:07 BP 123/62 04/27/21 08:27 Pulse Ox 94 L 04/27/21 06:07 Weight - Most Recent: 149 lb 9.6 oz I&O - Last 24 hours: Intake & Output 04/26/21 04/27/21 04/27/21 22:59 06:59 14:59 Intake Total 1670 400 Output Total 1475 950 Balance 195 -550 Lab Results - Last 24 hrs: Laboratory Results - last 24 hr 04/27/21 Range/Units 04:51 WBC 7.93 (3.98-10.04) K/mm3 RBC 4.27 (3.98-5.22) M/mm3 Hgb 12.3 (11.2-15.7) gm/dl Hct 39.2 (34.1-44.9) % MCV 91.8 (79.4-94.8) fl MCH 28.8 (25.6-32.2) pg MCHC 31.4 L (32.2-35.5) g/dl RDW Std Deviation 45.5 (36.4-46.3) fL Plt Count 412 H (182-369) K/mm3 MPV 10.0 (9.4-12.3) fl Neut % (Auto) 80.5 H (34.0-71.1) % Lymph % (Auto) 7.2 L (19.3-51.7) % Johnston % (Auto) 10.6 (4.7-12.5) % Eos % (Auto) 0.6 L (0.7-5.8) Baso % (Auto) 0.5 (0.1-1.2) % Neut # (Auto) 6.38 H (1.56-6.13) K/mm3 Lymph # (Auto) 0.57 L (1.18-3.74) K/mm3 Johnston # (Auto) 0.84 H (0.24-0.36) K/mm3 Eos # (Auto) 0.05 (0.04-0.36) K/mm3 Baso # (Auto) 0.04 (0.01-0.08) K/mm3 Med Orders - Current: Current Medications Acetaminophen (Acetaminophen 325 Mg Tab) 650 mg PO Q4H PRN PRN Reason: Pain (Mild 1-3)/fever Last Admin: 04/25/21 15:01 Dose: 650 mg Documented by: Amlodipine Besylate (Amlodipine 10 Mg Tab Ptom) 10 mg PO DAILY [facility] Last Admin: 04/27/21 08:27 Dose: 10 mg Documented by: Carvedilol (Carvedilol 12.5 Mg Tab) 12.5 mg PO BID [facility] Last Admin: 04/27/21 08:26 Dose: 12.5 mg Documented by: Hydromorphone HCl (Hydromorphone 0.5 Mg/0.5 Ml Syringe) 0.5 mg IVPUSH Q2H PRN PRN Reason: Pain (severe 7-10) Levothyroxine Sodium (Levothyroxine 50 Mcg Tab Ptom) 50 mcg PO DAILY@0800 [facility] Last Admin: 04/27/21 08:25 Dose: 50 mcg Documented by: Lorazepam (Lorazepam 1 Mg Tab) 1 mg PO TID PRN PRN Reason: Anxiety Ondansetron HCl (Ondansetron 4 Mg/2 Ml Sdv) 4 mg IV Q6H PRN PRN Reason: Nausea/Vomiting Oxycodone HCl (Oxycodone 5 Mg Tab) 10 mg PO Q6H PRN PRN Reason: Pain (moderate 4-6) Last Admin: 04/27/21 06:10 Dose: 10 mg Documented by: Entecavir 0.5 Mg (Tablet Ptom) 0 each PO Q2D [facility] Last Admin: 04/27/21 08:29 Dose: Not Given Documented by: Sertraline 50 Mg Tab (Ptom) 0 each PO DAILY [facility] Last Admin: 04/27/21 08:29 Dose: 50 each Documented by: Sulfamethoxazole/Trimethoprim 400-80 Mg Tab Ptom 0 each PO DAILY [facility] Last Admin: 04/27/21 08:30 Dose: 400 each Documented by: Valganciclovir Hcl (450 Mg Tablet Ptom) 0 each PO DAILY [facility] Last Admin: 04/27/21 08:31 Dose: 450 each Documented by: Mycophenolate Mofetil 500 Mg Tab * *Ptom 0 each PO BID@1200,2200 [facility] Last Admin: 04/26/21 22:20 Dose: 1,000 each Documented by: Magnesium Oxide 400 (Mg Tab Ptom) 0 each PO BID@1200,2200 [facility] Last Admin: 04/26/21 22:19 Dose: 400 each Documented by: Tacrolimus 0.5 Mg (Capsule Ptom) 0 each PO BID@0800,2000 [facility] Last Admin: 04/27/21 08:25 Dose: 2.5 each Documented by: Pantoprazole Sodium 40 Mg Tablet.Dr Ptom 0 each PO DAILY@0800 [facility] Last Admin: 04/27/21 08:23 Dose: 40 each Documented by: Prednisone (Prednisone 5 Mg Tab Ptom) 5 mg PO DAILY [facility] Last Admin: 04/27/21 08:27 Dose: 5 mg Documented by: Zolpidem Tartrate (Zolpidem 10 Mg Tab) 10 mg PO BEDTIME PRN PRN Reason: Insomnia Discontinued Medications Hydromorphone HCl (Hydromorphone 0.5 Mg/0.5 Ml Syringe) 0.5 mg IVPUSH ONETIME ONE Stop: 04/24/21 19:18 Last Admin: 04/24/21 20:06 Dose: 0.5 mg Documented by: Hydromorphone HCl (Hydromorphone 0.5 Mg/0.5 Ml Syringe) 0.5 mg IVPUSH ONETIME ONE Stop: 04/24/21 21:04 Last Admin: 04/24/21 21:09 Dose: 0.5 mg Documented by: Hydromorphone HCl (Hydromorphone 0.5 Mg/0.5 Ml Syringe) 0.5 mg IVPUSH ONETIME ONE Stop: 04/25/21 00:41 Last Admin: 04/25/21 00:54 Dose: 0.5 mg Documented by: Sodium Chloride (Normal Saline) 1,000 mls @ 150 mls/hr IV ASDIRECTED [facility] Last Admin: 04/24/21 20:05 Dose: 150 mls/hr Documented by: Sodium Chloride (Normal Saline) 1,000 mls @ 100 mls/hr IV ASDIRECTED [facility] Last Infusion: 04/25/21 09:00 Dose: 0 mls/hr Documented by: Magnesium Sulfate 2 gm/ Premix 50 mls @ 25 mls/hr IV ONETIME ONE Stop: 04/26/21 09:56 Last Admin: 04/26/21 09:31 Dose: 25 mls/hr Documented by: Levothyroxine Sodium (Levothyroxine 50 Mcg Tab Ptom) 50 mcg PO ACBREAKFAST [facility] Last Admin: 04/27/21 07:30 Dose: Not Given Documented by: Ondansetron HCl (Ondansetron 4 Mg/2 Ml Sdv) 4 mg IVPUSH ONETIME ONE Stop: 04/24/21 19:18 Last Admin: 04/24/21 20:06 Dose: 4 mg Documented by: Magnesium Oxide 400 (Mg Tab Ptom) 0 each PO BID [facility] Last Admin: 04/26/21 15:51 Dose: Not Given Documented by: Mycophenolate Mofetil 500 Mg Tab * *Ptom 0 each PO BID [facility] Last Admin: 04/26/21 15:50 Dose: Not Given Documented by: Pantoprazole Sodium 40 Mg Tablet.Dr Ptom 0 each PO ACBREAKFAST [facility] Last Admin: 04/27/21 07:30 Dose: Not Given Documented by: Tacrolimus 0.5 Mg (Capsule Ptom) 0 each PO BID [facility] Last Admin: 04/26/21 15:50 Dose: Not Given Documented by: Magnesium Oxide 400 (Mg Tab Ptom) 0 each PO BID [facility] - Exam Quality Assessment: Reports: DVT Prophylaxis. Denies: Supplemental Oxygen General: Reports: Alert, Oriented, Cooperative, No Acute Distress HEENT: Reports: Pupils Equal, Pupils Reactive, Mucous Membr. Moist/Leal Neck: Reports: Supple, Trachea Midline Lungs: Reports: Clear to Auscultation, Normal Respiratory Effort Cardiovascular: Reports: Regular Rate, Regular Rhythm GI/Abdominal Exam: Normal Bowel Sounds, Soft, No Distention, Tender (mild generalized ) (Female) Exam: Deferred Rectal (Female) Exam: Deferred Back Exam: Reports: Normal Inspection, Full Range of Motion Extremities: Normal Inspection, Normal Range of Motion, Non-Tender, No Pedal Edema, Normal Capillary Refill Skin: Reports: Warm, Dry, Intact Neurological: Reports: No New Focal Deficit Psy/Mental Status: Reports: Alert, Normal Affect, Normal Mood
== END 2021-04-27 10:08 | disposition home or self-care (01) ==
LOC: JD.ED 17:43 → JD.MS 04-25 10:25
PROVIDERS: ADMIT Family Medicine; ATTEND Family Medicine
DX: K56.609 Unspecified intestinal obstruction, unspecified as to partial versus complete obstruction (principal); R19.7 Diarrhea, unspecified; E03.9 Hypothyroidism, unspecified; E78.5 Hyperlipidemia, unspecified; D84.9 Immunodeficiency, unspecified; F41.9 Anxiety disorder, unspecified; F32.9 Major depressive disorder, single episode, unspecified; R10.9 Unspecified abdominal pain; K27.9 Peptic ulcer, site unspecified, unspecified as acute or chronic, without hemorrhage or perforation; Z94.0 Kidney transplant status; Z88.5 Allergy status to narcotic agent; Z79.899 Other long term (current) drug therapy; Z98.890 Other specified postprocedural states; Z87.891 Personal history of nicotine dependence; Z20.822 Contact with and (suspected) exposure to COVID-19
CPT/HCPCS: 36415; 74177; 80053; 81001; 83630; 83690; 83735; 85007; 85025; 85027; 86140; 87635; 96365; 96366; 96375; 96376; 99285; A9270; G0378; J1170; J2405; J3475; J7030; J7512; 96374; U0002

== ENCOUNTER 2021-11-23 18:52 | Emergency (ER) | payer BC, MEDICAID ==
[2021-11-23] MEDS ORDERED: Diphtheria,Pertussis(Acell),Tetanus Vaccine 0.5 ML Syringe IM ONE (20:49)
[2021-11-23] MEDS ORDERED: Lidocaine 1% 10 ML MDV INJECT ONE (20:52)
[2021-11-23] MEDS ORDERED: Amoxicillin/Clavulanate K 875-125 MG Tab PO ONE (21:13)
== END 2021-11-23 21:35 | disposition home or self-care (01) ==
LOC: JD.ED 18:52 → SUPCPDRO 18:52 → JD.ED 21:35
DX: S61.251A Open bite of left index finger without damage to nail, initial encounter (principal); E78.00 Pure hypercholesterolemia, unspecified; I10 Essential (primary) hypertension; K21.9 Gastro-esophageal reflux disease without esophagitis; E03.9 Hypothyroidism, unspecified; Z23 Encounter for immunization; Z79.899 Other long term (current) drug therapy; W55.11XA Bitten by horse, initial encounter
CPT/HCPCS: 90471; 99283

== ENCOUNTER 2024-12-26 11:32 | Inpatient (IN) | payer MEDICAID, MEDICARE, OTHER ==
[2024-12-26] MEDS ORDERED: Sodium Chloride 0.9% 10 ML Syringe FLUSH PRN (12:11)
[2024-12-26 12:17] LABS: BASOPHILS PERCENT AUTO 0.3 % (0.0-1.0); EOSINOPHILS PERCENT AUTO 0.3 % (0.0-6.0); HEMATOCRIT 53.5 % (37.0-47.0); HEMOGLOBIN 16.1 gm/dl (12.0-16.0); IMMATURE GRAN ABSOLUTE AUTO 0.03 K/mm3 (0.00-0.05); IMMATURE GRAN PERCENT AUTO 0.3 % (0.0-0.4); LYMPHOCYTES PERCENT AUTO 9.1 % (24.0-44.0); MEAN CORPUSCULAR HEMOGLOBIN 23.4 pg (28.0-32.0); MEAN CORPUSCULAR HGB CONC 30.1 g/dl (32.0-36.0); MEAN CORPUSCULAR VOLUME 77.6 fl (83.0-99.0); MEAN PLATELET VOLUME 10.3 fl (9.4-12.3); MONOCYTES ABSOLUTE AUTO 0.9 K/mm3 (0.0-0.8); MONOCYTES PERCENT AUTO 7.9 % (0.0-8.0); NEUTROPHILS ABSOLUTE AUTO 9.4 K/mm3 (1.8-7.7); NEUTROPHILS PERCENT AUTO 82.1 % (41.0-71.0); PLATELET COUNT,PLT 306 K/mm3 (150-400); RED BLOOD CELL COUNT 6.89 M/mm3 (4.10-5.30); WHITE BLOOD CELL COUNT,WBC 11.47 K/mm3 (3.9-11.3)
[2024-12-26 12:29] LABS: A/G RATIO 0.7 (1-2); ANION GAP 12.8 (5-15); BILIRUBIN TOTAL 0.4 mg/dL (0.2-1.0); BUN/CREATININE RATIO 10.6 (14-18); C-REACTIVE PROTEIN 11.33 mg/dL (<0.30); CALCIUM 9.2 mg/dL (8.5-10.1); CREATININE 1.7 mg/dL (0.55-1.02); EST CRCL DRUG DOSING (CG) 28.11 mL/min; POTASSIUM,K 3.8 mEq/L (3.5-5.1); PROTEIN TOTAL,TP 7.4 g/dl (6.4-8.2)
[2024-12-26] MEDS: Albuterol/Ipratropium 3.0-0.5 MG/3 ML Neb Soln NEB ONE (12:48)
[2024-12-26] MEDS: Sodium Chloride 0.9% 1,000 ML IV STA (13:24)
[2024-12-26] MEDS: cefTRIAXone 2 GM Vial IVPUSH ONE (13:54)
[2024-12-26 14:08] LABS: APPEARANCE,URINE CLOUDY (Clear); BILIRUBIN,URINE NEGATIVE (Negative); COLOR,URINE YELLOW (Yellow); GLUCOSE,URINE NEGATIVE (Negative); KETONES,URINE NEGATIVE (Negative); LEUKOCYTE ESTERASE,URINE 1+ (Negative); NITRITE,URINE POSITIVE (Negative); OCCULT BLOOD,URINE NEGATIVE (Negative); PH,URINE 5.5 (5.0-8.0); PROTEIN,URINE 2+ (Negative); UROBILINOGEN,URINE 0.2 (0.2-1.0)
[2024-12-26 14:29] LABS: RBC,URINE 0-5 /hpf (0-5); WBC,URINE 30-40 /hpf (0-5)
[2024-12-26 14:30] LABS: BACTERIA,URINE MANY /hpf (FEW); MUCUS,URINE MODERATE /hpf (FEW)
[2024-12-26] MEDS: Azithromycin 500 MG in Sodium Chloride 0.9% 250 ML IV SCH (14:52)
[2024-12-26] MEDS: Rosuvastatin 10 MG Tab PO SCH (21:44)
[2024-12-26] MEDS: Acetaminophen 325 MG Tab PO PRN (22:46)
[2024-12-26] MEDS: TACROLIMUS 1 MG PO ONE (23:15)
[2024-12-26] MEDS: TACROLIMUS 0.5 MG PO ONE (23:15)
[2024-12-26] MEDS: Tacrolimus 1 MG Cap PO SCH (23:16)
[2024-12-27 05:45] LABS: BASOPHILS ABSOLUTE AUTO 0.1 K/mm3 (0.0-0.2); BASOPHILS PERCENT AUTO 0.7 % (0.0-1.0); EOSINOPHILS ABSOLUTE AUTO 0.1 K/mm3 (0.0-0.4); HEMATOCRIT 46.7 % (37.0-47.0); HEMOGLOBIN 13.9 gm/dl (12.0-16.0); IMMATURE GRAN ABSOLUTE AUTO 0.02 K/mm3 (0.00-0.05); IMMATURE GRAN PERCENT AUTO 0.3 % (0.0-0.4); LYMPHOCYTES PERCENT AUTO 13.2 % (24.0-44.0); MEAN CORPUSCULAR HEMOGLOBIN 22.9 pg (28.0-32.0); MEAN CORPUSCULAR HGB CONC 29.8 g/dl (32.0-36.0); MEAN CORPUSCULAR VOLUME 76.8 fl (83.0-99.0); MEAN PLATELET VOLUME 10.6 fl (9.4-12.3); MONOCYTES ABSOLUTE AUTO 0.8 K/mm3 (0.0-0.8); MONOCYTES PERCENT AUTO 10.7 % (0.0-8.0); NEUTROPHILS ABSOLUTE AUTO 5.3 K/mm3 (1.8-7.7); NEUTROPHILS PERCENT AUTO 74.1 % (41.0-71.0); PLATELET COUNT,PLT 277 K/mm3 (150-400); RED BLOOD CELL COUNT 6.08 M/mm3 (4.10-5.30); WHITE BLOOD CELL COUNT,WBC 7.19 K/mm3 (3.9-11.3)
[2024-12-27 05:55] LABS: A/G RATIO 0.7 (1-2); ALBUMIN 2.6 g/dl (3.4-5.0); ANION GAP 14.6 (5-15); BILIRUBIN TOTAL 0.3 mg/dL (0.2-1.0); BUN/CREATININE RATIO 11.3 (14-18); C-REACTIVE PROTEIN 6.96 mg/dL (<0.30); CALCIUM 8.7 mg/dL (8.5-10.1); CREATININE 1.5 mg/dL (0.55-1.02); EST CRCL DRUG DOSING (CG) 31.86 mL/min; POTASSIUM,K 3.6 mEq/L (3.5-5.1); PROTEIN TOTAL,TP 6.4 g/dl (6.4-8.2)
[2024-12-27] MEDS: Heparin Sodium 5,000 Units/ML Vial SUBCUT SCH (08:50)
[2024-12-27] MEDS: lamoTRIgine 100 MG Tab PO SCH (08:50)
[2024-12-27] MEDS: predniSONE 5 MG Tab PO SCH (08:51)
[2024-12-27] MEDS: buPROPion 150 MG Tab.ER PO SCH (08:51)
[2024-12-27] MEDS: Pantoprazole 40 MG Tab.CR PO SCH (08:51)
[2024-12-27] MEDS: Tacrolimus 1 MG Cap PO SCH (09:42)
[2024-12-27] MEDS: Tacrolimus 0.5 MG Cap PO SCH (09:42)
[2024-12-27] MEDS: Benzonatate 100 MG Cap PO PRN (10:28)
[2024-12-27] MEDS: cefTRIAXone 1 GM Vial IVPUSH SCH (14:54)
== END 2024-12-27 17:05 | disposition home or self-care (01) | DRG 193 ==
LOC: JD.ED 11:32 → JD.MS 13:51 → MERGE 13:51
PROVIDERS: ADMIT Family Medicine; ATTEND Family Medicine
DX: J18.9 Pneumonia, unspecified organism (principal); J96.01 Acute respiratory failure with hypoxia; N39.0 Urinary tract infection, site not specified; D84.821 Immunodeficiency due to drugs; N17.9 Acute kidney failure, unspecified; Z94.0 Kidney transplant status; H54.7 Unspecified visual loss; F32.A Depression, unspecified; F17.210 Nicotine dependence, cigarettes, uncomplicated; E78.5 Hyperlipidemia, unspecified; I12.9 Hypertensive chronic kidney disease with stage 1 through stage 4 chronic kidney disease, or unspecified chronic kidney disease; N18.9 Chronic kidney disease, unspecified; B96.20 Unspecified Escherichia coli [E. coli] as the cause of diseases classified elsewhere; Z88.5 Allergy status to narcotic agent; Z79.899 Other long term (current) drug therapy; Z79.890 Hormone replacement therapy; Z98.49 Cataract extraction status, unspecified eye; Y83.0 Surgical operation with transplant of whole organ as the cause of abnormal reaction of the patient, or of later complication, without mention of misadventure at the time of the procedure; E03.9 Hypothyroidism, unspecified; F17.200 Nicotine dependence, unspecified, uncomplicated
CPT/HCPCS: 36415; 71046; 80053; 81001; 83605; 85025; 85379; 86140; 87040 ×2; 87086; 87088; 87186; 87428; 93005; 94640; 99285; A9270; J7030; 93010; 94760; 99223; 99239; J0456; J0696; J1644; J7050; J7507; J7512

== ENCOUNTER 2025-05-01 22:21 | Emergency (ER) | payer MEDICAID, MEDICARE ==
[2025-05-01] MEDS: Acetaminophen/HYDROcodone 325-5 MG Tab PO ONE (23:42)
== END 2025-05-01 23:50 | disposition home or self-care (01) ==
LOC: JD.ED 22:21
DX: S90.32XA Contusion of left foot, initial encounter (principal); I10 Essential (primary) hypertension; E78.00 Pure hypercholesterolemia, unspecified; K21.9 Gastro-esophageal reflux disease without esophagitis; E03.9 Hypothyroidism, unspecified; Z79.890 Hormone replacement therapy; Z79.899 Other long term (current) drug therapy; Z88.5 Allergy status to narcotic agent
CPT/HCPCS: 73630; 99283; A9270